=== PATIENT | female | born 1995 | race Caucasian/White ===

== ENCOUNTER 2019-08-29 04:25 | Emergency (ER) | payer OTHER, SELFPAY ==
[2019-08-29 04:27] VITALS: BP 130/83; PULSE 76; RESP 18; TEMP 37; O2SAT 100; BMI 23.0
--- NOTE | 2019-08-29 04:34 | ED.CHESTPAIN ---
HPI - Chest Pain General Chief Complaint: Chest Pain Stated Complaint: thinks she may have had heart attack, Time Seen by Provider: 08/29/19 04:27 Source: patient and family Mode of arrival: Ambulatory Limitations: no limitations History of Present Illness HPI narrative: 24-year-old female smoker with history of reflux presents with her significant other in the chief complaint of an episode of severe epigastric pain that started about 1 hour prior to arrival and lasted about 5 minutes. She states she has had significant alcohol over the past few weeks as well as caffeine intake. She denies associated symptoms such as dizziness, weakness or lightheadedness. She denies any radiation of her pain. She denies any cardiac history nor any family history of myocardial infarction less than 50 years old MD complaint: chest pain Onset (ago): hour(s) Duration: now resolved Onset: during rest Pain location: epigastric Severity: mild Quality: aching Pain radiation: none Relieving factors: nothing Exacerbating factors: nothing Treatments prior to arrival chest pain: none Related Data On Oral Contraceptives: No Review of Systems Constitutional Constitutional: Denies chills, Denies fatigue, Denies fever(s), Denies frequent falls, Denies lethargy and Denies weakness Eyes Eyes: Denies change in vision, Denies eye discharge, Denies irritation and Denies loss of vision ENT Ears, Nose, Mouth, and Throat: Denies change in voice, Denies dizziness, Denies neck pain, Denies sore throat and Denies throat swelling Cardiovascular Cardiovascular: Denies chest pain, Denies irregular heart rhythm, Denies lightheadedness, Denies palpitations, Denies dyspnea, Denies dyspnea on exertion and Denies orthopnea Respiratory Respiratory: Denies cough, Denies dyspnea, Denies dyspnea on exertion and Denies wheezing Gastrointestinal Gastrointestinal: Reports abdominal pain, Denies change in bowel habits, Reports heartburn, Denies diarrhea, Denies nausea and Denies vomiting Genitourinary Genitourinary: Denies hematuria, Denies flank pain, Denies urinary incontinence and Denies urinary urgency Musculoskeletal Musculoskeletal: Denies back pain, Denies muscle weakness, Denies neck pain, Denies numbness and Denies tingling Integumentary/Breasts Skin/Breast: Denies pruritus, Denies erythema, Denies rash and Denies wounds Neurologic Neurologic: Denies behavioral changes, Denies confusion, Denies dizziness, Denies frequent falls, Denies loss of vision, Denies numbness, Denies tingling and Denies weakness Psychiatric Psychiatric: Denies anxiety, Denies behavioral changes, Denies confusion, Denies depression, Denies homicidal ideation and Denies suicidal ideation Endocrine Endocrine: Denies fatigue, Denies flushing and Denies palpitations Hematologic/Lymphatic Hematologic/Lymphatic: Denies easy bruising Allergic/Immunologic Allergic/Immunologic: Denies urticaria, Denies throat swelling and Denies wheezing Patient History Social History Smoking Status: Current every day smoker Exam Narrative Exam Narrative: GENERAL: [24] year old patient appears stated age. Well-nourished, well-developed patient, in mild distress. HEAD: Atraumatic. Normocephalic. EYES: Pupils equal round and reactive. Extraocular motions intact. No scleral icterus. No injection or drainage. ENT: Nose without bleeding, purulent drainage. Throat without erythema, tonsillar hypertrophy or exudate. Airway patent. NECK: Trachea midline. Non tender CARDIOVASCULAR: Regular rate and rhythm without murmurs, gallops, or rubs. RESPIRATORY: Clear to auscultation. Breath sounds equal bilaterally. No wheezes, rales, or rhonchi. GASTROINTESTINAL: Abdomen soft, non-tender, nondistended. EXTREMITIES: No edema or joint tenderness. BACK: Nontender without deformity or crepitance. No flank tenderness. NEURO: AOx3. SKIN: No rash or erythema of visible areas Initial Vital Signs Initial Vital Signs: Vital Signs Temperature 98.6 F 08/29/19 04:27 Pulse Rate 76 08/29/19 04:27 Respiratory Rate 18 08/29/19 04:27 Blood Pressure 130/83 08/29/19 04:27 Pulse Oximetry 100 08/29/19 04:27 Course Orders Ordered: ED Orders 08/29/19 04:35 XR chest 1V Stat EKG-12 Lead Stat 08/29/19 04:45 B Type Natriuretic Peptide Stat Complete Blood Count AUTO DIFF Stat Comprehensive Metabolic Panel Stat D Dimer Stat Lipase Stat Troponin & CK Cardiac Panel Stat Sodium Chloride (Normal Saline 0.9%) 1,000 mls @ 150 mls/hr IV CONT CARMELA Discontinued Medications Aspirin (Aspirin Chew) 324 mg PO NOW ONE Stop: 08/29/19 04:35 Vital Signs Vital signs: Vital Signs - 8 hr 08/29/19 04:27 08/29/19 05:08 08/29/19 05:31 Temperature 98.6 F Pulse Rate 76 74 76 Respiratory Rate 18 18 20 Blood Pressure 130/83 Blood Pressure [Left Arm] 102/68 104/77 Pulse Oximetry 100 98 100 MDM - Chest Pain Lab Data Result diagrams: 08/29/19 04:45 08/29/19 04:45 Labs: Lab Results 08/29/19 08/29/19 08/29/19 Range/Units 04:45 04:45 04:45 WBC 10.0 (4.5-11.0) X10^3/uL RBC 4.09 (4.0-5.2) X10^6/uL Hgb 12.7 (12.0-16.0) g/dL Hct 37.5 (36-46) % MCV 91.6 (80-100) fL MCH 31.1 (26-34) PG MCHC 34.0 (30-36) % RDW 12.8 (11.6-14.8) % Plt Count 301 (150-400) X10^3/uL Neut % (Auto) 55.0 (50-75) % Lymph % (Auto) 35.3 (25-40) % Harris % (Auto) 8.5 (3-14) % Eos % (Auto) 0.7 L (2-4) % Baso % (Auto) 0.5 (0-2) % Neut # (Auto) 5500 (7685-9679) /uL Lymph # (Auto) 3500 (6812-2415) /uL Harris # (Auto) 800 (0-900) /uL Eos # (Auto) 100 (0-450) /uL Baso # (Auto) 0 (0-100) /uL D-Dimer 224 (<230) ng/mL Sodium (137-145) mmol/L Potassium (3.4-5.1) mmol/L Chloride (98-107) mmol/L Carbon Dioxide (22-32) mmol/L BUN (7-17) mg/dL Creatinine (0.52-1.04) mg/dL Estimated GFR (>60) mL/min BUN/Creatinine Ratio (6-22) Glucose (70-100) mg/dL Calcium (8.4-10.2) mg/dL Total Bilirubin (0.2-1.3) mg/dL AST (14-36) IU/L ALT (<35) IU/L Alkaline Phosphatase (38-126) U/L Total Creatine Kinase (30-135) U/L CK-MB (CK-2) CK-MB (CK-2) Rel Index Troponin I (0.01-0.034) ng/mL B-Natriuretic Peptide < 100 (<100) Total Protein (6.3-8.2) g/dL Albumin (3.5-5.0) g/dL Globulin (1.7-4.1) g/dL Albumin/Globulin Ratio (1.0-2.8) Lipase (23-300) U/L 08/29/19 Range/Units 04:45 WBC (4.5-11.0) X10^3/uL RBC (4.0-5.2) X10^6/uL Hgb (12.0-16.0) g/dL Hct (36-46) % MCV (80-100) fL MCH (26-34) PG MCHC (30-36) % RDW (11.6-14.8) % Plt Count (150-400) X10^3/uL Neut % (Auto) (50-75) % Lymph % (Auto) (25-40) % Harris % (Auto) (3-14) % Eos % (Auto) (2-4) % Baso % (Auto) (0-2) % Neut # (Auto) (3332-3826) /uL Lymph # (Auto) (5327-1706) /uL Harris # (Auto) (0-900) /uL Eos # (Auto) (0-450) /uL Baso # (Auto) (0-100) /uL D-Dimer (<230) ng/mL Sodium 138 (137-145) mmol/L Potassium 3.6 (3.4-5.1) mmol/L Chloride 103 (98-107) mmol/L Carbon Dioxide 25 (22-32) mmol/L BUN 17 (7-17) mg/dL Creatinine 0.80 (0.52-1.04) mg/dL Estimated GFR > 60.0 (>60) mL/min BUN/Creatinine Ratio 21.3 (6-22) Glucose 93 (70-100) mg/dL Calcium 9.5 (8.4-10.2) mg/dL Total Bilirubin 0.4 (0.2-1.3) mg/dL AST 19 (14-36) IU/L ALT 16 (<35) IU/L Alkaline Phosphatase 82 (38-126) U/L Total Creatine Kinase 55 (30-135) U/L CK-MB (CK-2) TNP CK-MB (CK-2) Rel Index TNP Troponin I < 0.012 (0.01-0.034) ng/mL B-Natriuretic Peptide (<100) Total Protein 6.5 (6.3-8.2) g/dL Albumin 4.2 (3.5-5.0) g/dL Globulin 2.3 (1.7-4.1) g/dL Albumin/Globulin Ratio 1.8 (1.0-2.8) Lipase 43 (23-300) U/L Imaging Data Chest x-ray: Attestation: I personally reviewed and interpreted this imaging study as follows: My impression: No acute process ECG Data Attestation: I personally reviewed and interpreted this ECG as follows: Interpretation: Normal sinus rhythm ring without signs of ectopy or ischemia. No ST segmental elevation or depression. Discharge Plan Departure Patient Disposition: Home Clinical Impression: Atypical chest pain Instructions: DI for Atypical Chest Pain Activity Restrictions/Additional Instructions: *You have been diagnosed with [atypical chest pain] *What to do: *Take medications as directed *Follow up with your primary care provider in 2-3 days, call for an appointment. Let them know you were seen in the Emergency Department and that we ask that you be seen in follow up *Return to ER if you should have any new, worsening or concerning symptoms
--- NOTE | 2019-08-29 04:35 | DI.RAD.S_ITS ---
PROCEDURE: XR CHEST 1V INDICATIONS: chest pain TECHNIQUE: One view of the chest was acquired. COMPARISON: None. FINDINGS: Surgical changes and devices: None. Lungs and pleura: Lungs are clear. No pleural effusions or pneumothorax. Mediastinum: Mediastinal contours appear normal. Heart size is normal. Bones and chest wall: No suspicious bony lesions. Overlying soft tissues appear unremarkable. IMPRESSION: Clear lungs. Dictated by: Jorgito Smith M.D. on 08/29/2019 at 7:22 Approved by: Jorgito Smith M.D. on 08/29/2019 at 7:23
[2019-08-29 05:06] LABS: Add Manual Diff / Slide Review NO; Basophils Absolute Auto 0 /uL (0-100); Basophils Percent Auto 0.5 % (0-2); Eosinophils Absolute Auto 100 /uL (0-450); Eosinophils Percent Auto 0.7 % (2-4); Hematocrit 37.5 % (36-46); Hemoglobin 12.7 g/dL (12.0-16.0); Lymphocytes Absolute Auto 3500 /uL (1100-4500); Lymphocytes Percent Auto 35.3 % (25-40); Mean Corpuscular Hemoglobin 31.1 PG (26-34); Mean Corpuscular Volume 91.6 fL (80-100); Monocytes Absolute Auto 800 /uL (0-900); Monocytes Percent Auto 8.5 % (3-14); Neutrophils Absolute Auto 5500 /uL (1500-7000); Platelet Count 301 X10^3/uL (150-400); Red Blood Cell Count 4.09 X10^6/uL (4.0-5.2); Red Cell Distribution Width 12.8 % (11.6-14.8)
[2019-08-29 05:08] VITALS: BP 102/68; PULSE 74; RESP 18; O2SAT 98
[2019-08-29 05:08] LABS: D Dimer 224 ng/mL (<230)
[2019-08-29 05:09] LABS: Alanine Aminotransferase 16 IU/L (<35); Albumin 4.2 g/dL (3.5-5.0); Albumin Globulin Ratio 1.8 (1.0-2.8); Alkaline Phosphatase 82 U/L (38-126); Aspartate Aminotransferase 19 IU/L (14-36); BUN Creatinine Ratio 21.3 (6-22); Bilirubin Total 0.4 mg/dL (0.2-1.3); Blood Urea Nitrogen 17 mg/dL (7-17); Calcium 9.5 mg/dL (8.4-10.2); Carbon Dioxide 25 mmol/L (22-32); Chloride 103 mmol/L (98-107); Creatine Kinase 55 U/L (30-135); Estimated Glomerular Filt Rate > 60.0 mL/min (>60); Globulin 2.3 g/dL (1.7-4.1); Glucose 93 mg/dL (70-100); HEMOLYSIS < 15 (0-50); Lipase 43 U/L (23-300); Potassium 3.6 mmol/L (3.4-5.1); Sodium 138 mmol/L (137-145); Total Protein 6.5 g/dL (6.3-8.2)
[2019-08-29 05:20] LABS: B Type Natriuretic Peptide < 100 (<100); Troponin I < 0.012 ng/mL (0.01-0.034)
[2019-08-29 05:31] VITALS: BP 104/77; PULSE 76; RESP 20; O2SAT 100
== END 2019-08-29 05:38 | disposition home or self-care (01) ==
PROVIDERS: Emergency Provider Emergency Medicine
DX: R07.89 Other chest pain (principal)
CPT/HCPCS: 36415; 71045; 80053; 82550; 83690; 83880; 84484; 85025; 85379; 93005; 99283; 99285

== ENCOUNTER 2019-12-31 12:13 | Emergency (ER) | payer OTHER, SELFPAY ==
[2019-12-31 12:29] VITALS: BP 113/58; PULSE 75; RESP 14; TEMP 36.3; O2SAT 100; BMI 23.9
--- NOTE | 2019-12-31 12:52 | DI.RAD.S_ITS ---
PROCEDURE: XR CHEST 2V INDICATIONS: bleach inhalation TECHNIQUE: 2 views of the chest were acquired. COMPARISON: None. FINDINGS: Surgical changes and devices: None. Lungs and pleura: Lungs are clear. No pleural effusions or pneumothorax. Mediastinum: Mediastinal contours are normal. Heart size is normal. Bones and chest wall: No suspicious bony abnormalities. Soft tissues appear unremarkable. IMPRESSION: No acute cardiopulmonary disease process. Dictated by: Yasmin Lazar MD, PhD on 12/31/2019 at 12:18 Approved by: Yasmin Lazar MD, PhD on 12/31/2019 at 12:19
--- NOTE | 2019-12-31 13:36 | ED.ALLEREA ---
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 Her come and has been cleaning working area every 2 hours with bleach sprays. She reports her mother has allergies to Clorox/bleach and she thinks she has the allergies to the Clorox/bleach. Patient reports currently she does not have any symptoms such as chest pain, breathing difficulty. She is requesting a note to take to her work that she has an allergy to bleach. 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 Related Data Allergies Allergy/AdvReac Type Severity Reaction Status Date / Time No Known Drug Allergies Allergy Verified 12/31/19 12:29 Review of Systems <NICOLAS Ennis - Last Filed: 12/31/19 14:26> Review of Systems Narrative: General: Denies fever, chills, fatigue, malaise, sweats. HEENT: Denies sinus pain, ear pain, sore throat, difficulty swallowing, dizziness. Respiratory: Resolved dyspnea and cough. Denies wheezing, hemoptysis, sputum. Cardiovascular: Denies chest pain, palpitations, orthopnea, edema. Gastrointestinal: Denies nausea, vomiting, abdominal pain, diarrhea, constipation, melena. : Denies dysuria, frequency, incontinence, hematuria, urinary retention. Musculoskeletal: Denies weakness, joint pain or bony pain. Skin: Denies rash, skin lesions, or other. Neurologic: Denies weakness, headache, numbness, change in speech, confusion, seizures, incoordination. Psychiatric: No concerning psychosocial issues. 12-point review of systems is negative except for those stated above. Patient History <NICOLAS Ennis - Last Filed: 12/31/19 14:26> Medical History (Updated 12/31/19 @ 13:47 by NICOLAS Ennis) No significant past medical history (Acute) Surgical History (Updated 12/31/19 @ 13:43 by NICOLAS Ennis) No pertinent past surgical history (Acute) Social History Smoking Status: Current every day smoker Smoking Status: Current every day smoker tobacco type: vaping alcohol intake frequency: 0-2 drinks per day Alcohol type: beer, wine and hard liquor Substance Use Type: does not use Exam <NICOLAS Ennis - Last Filed: 12/31/19 14:26> Narrative Exam Narrative: GEN: Alert, oriented x 3, well appearing and nourished, and in no acute distress. Head: Normal cephalic, atraumatic. No scalp or temporal tenderness, palpable mass or rash. EYES: Pupils are equal, round, and reactive to light and accommodation. Extraocular muscles are intact bilaterally. There is no subconjunctival hemorrhage, exudate and sclera non-icteric. ENT: Bilateral auditory canals and tympanic membranes clear. Hearing grossly intact. Nose without bleeding, purulent discharge or deviation. Facial sinuses nontender to palpate. Mucous membrane moist, no mucosal lesion. Throat without erythema, tonsillar hypertrophy or exudate. Uvula in midline, airway patent. Neck: Trachea in midline. No JVD, non-tender without lymphadenopathy. No masses or thyroid megaly. Supple, non-tender and no meningeal signs. CARDIAC: Normal regular rate and rhythm without murmurs, gallops, or rubs. No chest wall tenderness. No peripheral edema, cyanosis or pallor. Capillary refill is less than 2 seconds. RESPIRATORY: Lungs are clear to auscultate bilaterally. No cough, wheezes, rales, or rhonchi. No stridor, respiratory distress, increase work of breathing, or accessary muscle used. ABD: Abdomen soft, nontender and non-distended. No guarding or rebound tenderness to palpate. Bowel sounds are normal in all 4 quadrants. There is no palpable masses or organomegaly. EXT: Full painless ROM of all extremities with no loss of sensation, strength, effusion or edema. SKIN: Warm, dry, normal color for patient. No erythema, lesions or rash over visible areas. BACK: Nontender without deformity or crepitance. No flank tenderness. NEUROLOGICAL: Alert and oriented to place, time and person. Sensation and motor function intact bilaterally. No facial droops, dysphasia. PSYCHIATRIC: Good judgement and reason, without hallucinations, abnormal affect or abnormal behaviors during the examination. Initial Vital Signs Initial Vital Signs: Vital Signs Temperature 97.3 F L 12/31/19 12:29 Pulse Rate 75 12/31/19 12:29 Respiratory Rate 14 12/31/19 12:29 Blood Pressure 113/58 L 12/31/19 12:29 Pulse Oximetry 100 12/31/19 12:29 <Frank Lobo MD - Last Filed: 01/07/20 17:57> Initial Vital Signs Initial Vital Signs: Vital Signs Temperature 97.3 F L 12/31/19 12:29 Pulse Rate 75 12/31/19 12:29 Respiratory Rate 14 12/31/19 12:29 Blood Pressure 113/58 L 12/31/19 12:29 Pulse Oximetry 100 12/31/19 12:29 Scores <NICOLAS Ennis - Last Filed: 12/31/19 14:26> GCS Agnieszka coma scale eye opening: Spontaneous Agnieszka coma scale verbal response: Orientated Agnieszka coma scale motor response: Obey commands Agnieszka coma scale total score: 15 Course <NICOLAS Ennis - Last Filed: 12/31/19 14:26> Orders Ordered: ED Orders 12/31/19 12:52 Chest [XR chest 2V] Stat Vital Signs Vital signs: Vital Signs - 8 hr 12/31/19 12:29 12/31/19 14:10 Temperature 97.3 F L Pulse Rate 75 83 Respiratory Rate 14 16 Blood Pressure 113/58 L 94/58 L Pulse Oximetry 100 100 <Frank Lobo MD - Last Filed: 01/07/20 17:57> Orders Ordered: ED Orders 12/31/19 12:52 Chest [XR chest 2V] Stat Vital Signs Vital signs: Vital Signs - 8 hr 12/31/19 12:29 12/31/19 14:10 Temperature 97.3 F L Pulse Rate 75 83 Respiratory Rate 14 16 Blood Pressure 113/58 L 94/58 L Pulse Oximetry 100 100 MDM - Allergic Reaction <NICOLAS Ennis - Last Filed: 12/31/19 14:26> Differential Diagnosis Differential diagnosis: Likely allergic reaction and urticaria (Respiratory sensitivity to bleach products) Medical Records Attestation: I reviewed the patient's medical records. Imaging Data Chest x-ray: Radiologist's Impression: [address] [address] XRay Report Signed Patient: Jacinta Conroy [facility] [place]#: [id number] : 1995Acct:[id number] Age/Sex: 24 / FDate of Service: 12/31/19 Loc: ED Accession Number: [id number] Procedure: XR chest 2V Ordering Provider: Oscar Mercado PROCEDURE: XR CHEST 2V INDICATIONS: bleach inhalation TECHNIQUE: 2 views of the chest were acquired. COMPARISON: None. FINDINGS: Surgical changes and devices: None. Lungs and pleura: Lungs are clear. No pleural effusions or pneumothorax. Mediastinum: Mediastinal contours are normal. Heart size is normal. Bones and chest wall: No suspicious bony abnormalities. Soft tissues appear unremarkable. IMPRESSION: No acute cardiopulmonary disease process. 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 Patient denies dyspnea, swelling to her throat, rash on her hand currently. Her common has been cleaning every 2 hours with bleach product with the Garza Virus precuautions. Chest x-ray does not show any acute findings such as pneumonitis, pneumonia. Patient requesting allergy testing for bleach and informed that this could not be done in ED. Patient advised to avoid bleach products if this causes her dyspnea and short of breath in well ventilated area. Return precautions were discussed with the patient and patient verbalized understanding and in agreement with the treatment. Discharge Plan Departure Patient Disposition: Home Clinical Impression: Chemical sensitivity Discharge Date/Time: 12/31/19 14:15 Activity Restrictions/Additional Instructions: You have been diagnosed with [chemical sensitivity to bleach. Chest x-ray does not show acute findings today. Your lung sounds are clear to auscultate in all lobes. Your O2 sat isn't 100% in room air.]. What to do: *Take your medications as directed. No new medications to go home with but avoid bleach products if you experience short of breath, difficulty breathing, cough, rash or chest pain. *Follow up with your primary care provider in 2-3 days, call for an appointment. Let them know you were seen in the ED and that we asked you to be seen in follow up. *Return to ED if you have any new, worsening, or concerning symptoms, such as [chest pain, breathing difficulty, unable to tolerate fluids, or any acute concerns]. Referrals: [facility] [Outside] Stand Alone Forms: Work Release Note
[2019-12-31 14:10] VITALS: BP 94/58; PULSE 83; RESP 16; O2SAT 100
== END 2019-12-31 14:15 | disposition home or self-care (01) ==
PROVIDERS: Emergency Provider Nurse Practitioner Family
DX: T54.91XA Toxic effect of unspecified corrosive substance, accidental (unintentional), initial encounter (principal)
CPT/HCPCS: 71046; 99281; 99283

== ENCOUNTER → 2020-12-26 08:35 | Outpatient (CLI) | payer OTHER, SELFPAY ==
[2020-12-26 09:39] LABS: Add Manual Diff / Slide Review NO; Basophils Absolute Auto 0 /uL (0-100); Basophils Percent Auto 0.3 % (0-2); Eosinophils Absolute Auto 0 /uL (0-450); Eosinophils Percent Auto 0.5 % (2-4); Hematocrit 38.4 % (36-46); Lymphocytes Absolute Auto 1700 /uL (1100-4500); Lymphocytes Percent Auto 19.2 % (25-40); Mean Corpuscular HGB Conc 33.9 % (30-36); Mean Corpuscular Hemoglobin 31.1 PG (26-34); Mean Corpuscular Volume 91.8 fL (80-100); Monocytes Absolute Auto 500 /uL (0-900); Monocytes Percent Auto 5.5 % (3-14); Neutrophils Absolute Auto 6700 /uL (1500-7000); Neutrophils Percent Auto 74.5 % (50-75); Platelet Count 280 X10^3/uL (150-400); Red Blood Cell Count 4.18 X10^6/uL (4.0-5.2); Red Cell Distribution Width 12.4 % (11.6-14.8); White Blood Cell Count 8.9 X10^3/uL (4.5-11.0)
[2020-12-26 09:56] LABS: Appearance Urine UA CLEAR; Bilirubin Urine UA NEGATIVE (NEGATIVE); Color Urine UA YELLOW; Glucose Urine UA NEGATIVE (Negative); Ketones Urine UA NEGATIVE (NEGATIVE); Leukocyte Esterase Urine UA NEGATIVE (NEGATIVE); Nitrite Urine UA NEGATIVE (Negative); Occult Blood Urine UA NEGATIVE (Negative); Protein Urine UA NEGATIVE (Negative); Specific Gravity Urine UA <=1.005 (1.000-1.035); Urobilinogen Urine UA 0.2 E.U./dL (0.2)
[2020-12-26 10:07] LABS: pH Urine UA 5.5 (4.5-8.0)
[2020-12-26 16:21] LABS: Hepatitis B Surface Antigen NEGATIVE s/c (NEGATIVE); Rubella Antibody IgG 6.4 IU/mL (>15)
[2020-12-26 16:38] LABS: Hep C Virus Ab w/Reflex Quant NEGATIVE s/c (NEGATIVE)
[2020-12-27 07:36] LABS: RPR Screen Non Reactive (Non Reactive)
[2020-12-27 10:36] LABS: Varicella IgG Antibody 1421 index (Immune >165)
== END ==
PROVIDERS: Referring Provider Specialist; Visit Provider Specialist
DX: Z34.01 Encounter for supervision of normal first pregnancy, first trimester (principal)
CPT/HCPCS: 36415; 80055; 81003; 86787; 86803; 86850; 86900; 86901; 87077; 87086

== ENCOUNTER → 2021-01-23 08:04 | Outpatient (CLI) | payer OTHER, SELFPAY ==
[2021-01-24 22:02] LABS: Chlamydia trachomatis NAA Negative (Negative); Neisseria gonorrhoeae NAA Negative (Negative)
== END ==
PROVIDERS: Visit Provider Specialist
DX: Z11.3 Encounter for screening for infections with a predominantly sexual mode of transmission (principal)
CPT/HCPCS: 87491; 87591

== ENCOUNTER → 2021-03-26 09:06 | Outpatient (CLI) | payer OTHER, SELFPAY ==
--- NOTE | 2021-03-26 09:07 | DI.US.S_ITS ---
PROCEDURE: US OB >= 14 WEEKS FETUS INDICATIONS: ANATOMY OUTSIDE/PRIOR DATING DATA: Last menstrual period (LMP): 10/27/2020 LMP-based estimated date of delivery (CLAUDETTE): 08/03/2021 First dating scan (date and location): 12/26/2020. [place] Estimated date of delivery (CLAUDETTE) from first dating scan: 07/30/2021 . TECHNIQUE: Real-time scanning was performed of the fetus, with image documentation and biometric measurements. COMPARISON: None. FINDINGS: General: A single living intrauterine gestation is present. Presentation: Vertex. Placenta: Placental position is posterior , without previa. Amniotic fluid index: 17.0 cm, normal range is 5-24 cm. heart rate: 157 beats per minute. Maternal cervical canal: 3.0 cm long. Normal lower limit is 2.5 cm. Maternal anatomy. A 4.5 x 1.9 x 2.2 centimeter right ovarian simple cyst is seen. biometrics: Biparietal diameter: 5.3 centimeters: 22 weeks 0 days Head circumference: 19.1 centimeters: 21 weeks 3 days Abdominal circumference: 16.2 centimeters: 21 weeks 2 days Femur length: 3.9 centimeters: 21 weeks 2 days Estimated gestational age from initial scan: 22 weeks 0 days. Composite gestational age from present scan: 21 weeks 5 days Estimated weight and percentile: 444 grams. 30th percentile Measurement variability for biometric dating: +/- 7 days from 14 weeks to 15 weeks 6 days gestation, +/- 10 days from 16 weeks to 21 weeks 6 days gestation, +/- 2 weeks from 22 weeks to 27 weeks 6 days gestation, +/- 3 weeks for 28 weeks gestation or later. weight reference: 4500 g or EFW >90/95% is considered macrosomia or large for gestational age. EFW <10% is small for gestational age. EFW 5% or less is considered intra-uterine growth restriction. Anatomic survey: Neuro: Ventricles are non-dilated at less than 10 mm. Cisterna magna is normal at 3-11 mm. Cerebellum is normal in size and morphology. Nuchal skin fold: Normal at less than 6 mm between 14-21 weeks gestational age. Face: Nose and lips, facial profile are normal. Spine: No evidence for spina bifida. Heart: 4-chambered heart is present, with normal ventricular outflow tracts. Diaphragm: Diaphragm is intact. Stomach: Left-sided stomach is present but is prominent Kidneys: No hydronephrosis. Normal is less than 5 mm in 2nd trimester, less than 7 mm in 3rd trimester. Cord: 3-vessel cord has orthotopic insertion. Bladder: Normal in size. Extremities: All 4 extremities identified. IMPRESSION: 1. Single live intrauterine with a composite ultrasound gestational age of 21 weeks 5 days on present scan. 2. The stomach is prominent and fluid filled, all other anatomy is normal. 3. Simple right ovarian cyst. Dictated by: Leo White M.D. on 03/26/2021 at 12:39 Approved by: Leo White M.D. on 03/26/2021 at 12:45
[2021-03-26 12:40] LABS: Hematocrit 34.2 % (36-46); Hemoglobin 11.5 g/dL (12.0-16.0)
[2021-03-26 13:01] LABS: GTT (PREG) 1 Hour PP 50gm Dose 115 mg/dL (76-139)
== END ==
PROVIDERS: Referring Provider Specialist; Visit Provider Specialist
DX: O34.82 Maternal care for other abnormalities of pelvic organs, second trimester (principal); N83.291 Other ovarian cyst, right side; Z3A.21 21 weeks gestation of pregnancy
CPT/HCPCS: 36415; 76811; 82950; 85014; 85018

== ENCOUNTER → 2021-04-27 07:57 | Outpatient (CLI) | payer OTHER, SELFPAY ==
[2021-04-27 09:41] LABS: Hematocrit 33.5 % (36-46); Hemoglobin 11.5 g/dL (12.0-16.0)
[2021-04-27 09:51] LABS: GTT (PREG) 1 Hour PP 50gm Dose 169 mg/dL (76-139)
== END ==
PROVIDERS: Referring Provider Specialist; Visit Provider Specialist
DX: O99.810 Abnormal glucose complicating pregnancy (principal); O99.019 Anemia complicating pregnancy, unspecified trimester
CPT/HCPCS: 36415; 82950; 85014; 85018

== ENCOUNTER → 2021-05-02 06:39 | Outpatient (CLI) | payer OTHER, SELFPAY ==
[2021-05-02 09:01] LABS: Glucose 1 Hour Gest 154 mg/dL (76-180)
[2021-05-02 09:01] LABS: Glucose Fasting Gestational 78 mg/dL (76-95)
[2021-05-02 10:21] LABS: Glucose 2 Hour Gest 129 mg/dL (76-155)
[2021-05-02 10:21] LABS: Glucose Tol Interp,Gestational INTERPRETATION
[2021-05-02 11:21] LABS: Glucose 3 Hour Gest 113 mg/dL (76-140)
== END ==
PROVIDERS: Obstetrics & Gynecology; Referring Provider Specialist; Visit Provider Specialist
DX: Z34.02 Encounter for supervision of normal first pregnancy, second trimester (principal); Z3A.26 26 weeks gestation of pregnancy
CPT/HCPCS: 36415; 82951; 82952

== ENCOUNTER 2021-05-16 17:59 | Outpatient (CLI) | payer OTHER, SELFPAY ==
--- NOTE | 2021-05-16 18:43 | P.TNLD_ITS ---
Visit Information Visit Information Date of evaluation: 05/16/21 Primary OB Provider: Blanca Morales Reason for Evaluation: Yes pre-term labor Comments/Additional reasons for admission: 25-year-old 1 para 0 at 28 weeks 5 days comes in complaining of lower abdominal cramping and decreased movement [facility] Medical History (Updated 03/27/21 @ 09:37 by Manish Castillo MD) Anemia affecting GERD (gastroesophageal reflux disease) (~2015) No significant past medical history Surgical History (Updated 12/21/20 @ 15:14 by Glenis Lua RN) No pertinent past surgical history [place] teeth extracted Family History (Updated 12/21/20 @ 15:28 by Glenis Lua, NIKOLAI) Mother Chain smoker Father Family estrangement Grandmother Lung cancer Smoker Grandfather Smoker COPD (chronic obstructive pulmonary disease) Grandmother Diabetes mellitus Grandfather Diabetes mellitus Sister infant Asthma Social History marital status: unmarried,living together (Lives w/ FOB. ) number of children: 2 household members: significant other and children (Boyfriend's children, age 6 & 9. ) lives independently: Yes caregiver/support person: No housing: house pets and animals: Yes (1 Cat; aware. ) education level: college (Working on Bachelor's in [employer].) occupational status: employed (Works on [employer], now has desk job r/t . ) current occupational exposures/hazards: No special lilyl needs: No seatbelt use: always working smoke detector in home: Yes carbon monox detector in home: Yes firearms in home: Yes firearms unloaded and locked: Yes do you feel safe at home: Yes Smoking Status: Former smoker (Cigarettes & Vaping x 5 yrs; quit 11/2020.) Tobacco: How many years used: 5 quit status: has quit before second hand exposure: No alcohol intake: former (Pre-: rarely, but situational. ) substance use type: does not use during the past year weight has: remained stable well-balanced diet: daily or most days daily servings fruits/ve-4 caffeine: No (Quit w . ) Type(s) of exercise: weight lifting (Pre-: weighted lifts / squats, gym daily. ) and normal ROM and activity frequency: daily Review of Systems Review of Systems Narrative: Patient states that she had cramping in her lower abdomen at work going up and downstairs and when she was driving. She states she has been pushing fluids and she did end up going home and her cramping has decreased. She is concerned because she has been noticing decreased movement. She denies any vaginal bleeding. The cramping appears to be suprapubic. She does states she is urinating more frequently. Exam Vital Signs (past 8 hours): blood pressure 115/72, temperature 36.1? Narrative Exam Narrative: Patient's abdomen is soft, nontender. Objective Labs Labs: UA negative Evaluation Evaluation Baseline heart rate: 150 Variability: Moderate (11-25) monitor accelerations: Absent Monitor Decelerations: Absent Contraction Frequency (minutes): 0 Status: Category l Diagnosis, Plan/Disposition Plan/Disposition Plan: Patient feeling good movement now. No contractions on monitor so patient reassured. Patient is to call if she notices increasing rather than decreasing pain. Vaginal bleeding. Any further concerns with baby movement. Patient is to increase fluids and rest as much as she can. Keep her follow-up appointment in 2 weeks OB Disposition: home
[2021-05-16 19:14] LABS: Appearance Urine UA CLEAR; Bilirubin Urine UA NEGATIVE (NEGATIVE); Color Urine UA YELLOW; Glucose Urine UA TRACE g/dL (Negative); Ketones Urine UA NEGATIVE (NEGATIVE); Leukocyte Esterase Urine UA NEGATIVE (NEGATIVE); Nitrite Urine UA NEGATIVE (Negative); Occult Blood Urine UA NEGATIVE (Negative); Protein Urine UA NEGATIVE (Negative); Urobilinogen Urine UA 0.2 E.U./dL (0.2)
== END 2021-05-16 19:21 | disposition home or self-care (01) ==
LOC: LABOR 18:02 → OB 05-17 08:30
PROVIDERS: Referring Provider Specialist; Visit Provider Specialist
DX: O36.8130 Decreased fetal movements, third trimester, not applicable or unspecified (principal); O26.893 Other specified pregnancy related conditions, third trimester; R10.30 Lower abdominal pain, unspecified; Z3A.28 28 weeks gestation of pregnancy
CPT/HCPCS: 59025; 81003; G0378; G0379

== ENCOUNTER 2021-07-12 19:56 | Outpatient (CLI) | payer OTHER, SELFPAY | END 2021-07-12 22:06 | disposition home or self-care (01) | LOC: OB 07-18 07:14 | PROVIDERS: Referring Provider Specialist; Visit Provider Specialist | DX: Z03.71 Encounter for suspected problem with amniotic cavity and membrane ruled out (principal); O47.03 False labor before 37 completed weeks of gestation, third trimester; Z3A.36 36 weeks gestation of pregnancy | CPT/HCPCS: 59025; 84112; G0378; G0379 ==

== ENCOUNTER → 2021-07-13 13:43 | Outpatient (CLI) | payer OTHER, SELFPAY ==
[2021-07-14 14:54] LABS: Strep Grp B PCR NEG for Grp B Strep
== END ==
PROVIDERS: Visit Provider Obstetrics & Gynecology
DX: Z34.03 Encounter for supervision of normal first pregnancy, third trimester (principal); Z3A.37 37 weeks gestation of pregnancy
CPT/HCPCS: 87653

== ENCOUNTER 2021-07-29 18:43 | Inpatient (IN) | payer OTHER, SELFPAY ==
--- NOTE | 2021-07-29 20:09 | PM.OBHP.1 ---
OB HPI Date/Time Date of admission: 07/29/21 Date Patient Seen: 07/29/21 Time Patient Seen: 20:09 History of Present Condition Chief complaint: LABOR CHECK : 1 Para: 0 Estimated Date of Delivery: 08/03/21 Estimated Gestational Age (weeks): 39.2 Narrative: Jacinta Canales is a 25 year old female @ [id number]. Presents for evaluation of labor. Contractions started this morning and have slowly progressed in frequency and intensity. +FM. No vaginal bleeding or LOF. care w/ significant for mild anemia and a prominent stomach evaluated by MFM and determined to be a likely variant of normal, though pediatric evaluation is recommended after . Planning epidural. History of Present care: good care, initiated at week # (8), number of visits (10) and pounds weight gain (46) Dating criteria: LMP confirmed by 1st trimester US Ultrasounds: normal mid trimester US Obstetrical complications: none Medical complications: none Preadmission Labs Blood type: O (+) positive -: Antibody screen: negative -: Chlamydia screen: not detected and Gonorrhea screen: not detected -: Rubella: not immune and Varicella: immune HCAB: negative 3 hr GTT: 1 hr (154), 2 hr (129) and 3 hr (113) Fasting blood glucose: 78 Evaluation Evaluation Baseline heart rate: 135 Variability: Moderate (11-25) monitor accelerations: Present Monitor Decelerations: Absent Contraction Frequency (minutes): 5 Uterine Contraction Intensity: Strong/Firm Status: Category l Cervical dilation (cm): 4 Cervical effacement (%): 90 station: -2 [facility] Medical History Anemia affecting GERD (gastroesophageal reflux disease) (~2016) No significant past medical history Surgical History No pertinent past surgical history [place] teeth extracted Family History Mother Chain smoker Father Family estrangement Grandmother Lung cancer Smoker Grandfather Smoker COPD (chronic obstructive pulmonary disease) Grandmother Diabetes mellitus Grandfather Diabetes mellitus Sister Asthma Social History marital status: unmarried,living together (Lives w/ FOB. ) number of children: 2 household members: significant other and children (Boyfriend's children, age 6 & 9. ) lives independently: Yes caregiver/support person: No housing: house pets and animals: Yes (1 Cat; aware. ) education level: college (Working on Bachelor's in [employer].) occupational status: employed (Works on [employer], now has desk job r/t . ) current occupational exposures/hazards: No special lilly needs: No seatbelt use: always working smoke detector in home: Yes carbon monox detector in home: Yes firearms in home: Yes firearms unloaded and locked: Yes do you feel safe at home: Yes Smoking Status: Former smoker (Cigarettes & Vaping x 5 yrs; quit 11/2020.) Tobacco: How many years used: 5 quit status: has quit before second hand exposure: No alcohol intake: former (Pre-: rarely, but situational. ) substance use type: does not use during the past year weight has: remained stable well-balanced diet: daily or most days daily servings fruits/ve-4 caffeine: No (Quit w . ) Type(s) of exercise: weight lifting (Pre-: weighted lifts / squats, gym daily. ) and normal ROM and activity frequency: daily Meds Home Medications and Allergies Home Medications Medication Instructions Recorded Confirmed Type prenat.vits,chani,kyu-knke-vegbm 1 tab PO DAILY 12/26/20 07/26/21 History ascorbic acid (vitamin C) 500 mg 500 mg PO DAILY #90 cap 03/27/21 07/26/21 Rx capsule ferrous sulfate 325 mg (65 mg 325 mg PO DAILY #90 tab 03/27/21 07/26/21 Rx iron) tablet (Feosol) pantoprazole 40 mg tablet,delayed 40 mg PO DAILY 05/31/21 07/26/21 History release (Protonix) Allergies Allergy/AdvReac Type Severity Reaction Status Date / Time No Known Drug Allergies Allergy Verified 05/31/21 11:59 Review of Systems Review of Systems ROS: Yes All systems reviewed with the patient and are negative except as otherwise documented Exam Vital Signs (past 8 hours): BP 131/87mmHg, HR 86bpm, RR 18/min, T 98.0F Temporal Resp Auscultation: clear to auscultation bilaterally Cardio Rate: regular rate Rhythm: regular rhythm Heart Sounds: S1 normal and S2 normal Presentation: vertex Assessment and Plan Assessment and Plan Assessment and Plan narrative: A: Term nullipara Active labor No indication for GBS prophylaxis Cat I FHR P: Admit, routine orders with epidural BILLY. Discussed management with OB Back-up/ who recommended CNM care which pt consents to. Will notify Peds after delivery to evaluate stomach. Reassess after 4 hours or sooner, PRN.
[2021-07-29 20:51] LABS: Add Manual Diff / Slide Review NO; Basophils Absolute Auto 0 /uL (0-100); Basophils Percent Auto 0.3 % (0-2); Eosinophils Absolute Auto 0 /uL (0-450); Eosinophils Percent Auto 0.1 % (2-4); Hematocrit 37.3 % (36-46); Hemoglobin 12.1 g/dL (12.0-16.0); Lymphocytes Absolute Auto 2000 /uL (1100-4500); Lymphocytes Percent Auto 13.9 % (25-40); Mean Corpuscular HGB Conc 32.3 % (30-36); Mean Corpuscular Hemoglobin 29.1 PG (26-34); Mean Corpuscular Volume 90.1 fL (80-100); Monocytes Absolute Auto 800 /uL (0-900); Monocytes Percent Auto 5.6 % (3-14); Neutrophils Absolute Auto 11500 /uL (1500-7000); Neutrophils Percent Auto 80.1 % (50-75); Platelet Count 251 X10^3/uL (150-400); Red Blood Cell Count 4.14 X10^6/uL (4.0-5.2); Red Cell Distribution Width 16.4 % (11.6-14.8); White Blood Cell Count 14.3 X10^3/uL (4.5-11.0)
[2021-07-29 21:08] LABS: COVID19 -Nasal RAPID Negative (Negative)
[2021-07-29] MEDS: FENT 2MCG/ML BUPIV 0.125% EPI 200 MCG/100 ML PLAST..BAG 10 MCG EPIDURAL (21:14)
[2021-07-29 23:41] VITALS: BP 131/87
[2021-07-30] MEDS: FENT 2MCG/ML BUPIV 0.125% EPI 200 MCG/100 ML PLAST..BAG 10 MCG EPIDURAL (01:56)
[2021-07-30] MEDS: LACTATED RINGERS 1,000 ML 100 ML IV ×2 (02:12→08:58)
--- NOTE | 2021-07-30 05:00 | PM.OBPNLAB ---
Date/Time Date Patient Seen: 07/30/21 Time Patient Seen: 00:00 Pain Control Pain control: epidural Comments: VS: BP 116/68mmHg, HR 69bpm, T 36.4C Temporal Pelvic Exam Dilation (cm): 7 Effacement (%): 90 station: -1 Contractions Contractions on admission: regular Monitor mode: External Contraction frequency (min): 3 Contraction duration (min): 1 Contraction pattern: Regular Status status: Category l Heart Rate Baseline: 130 Monitor Accelerations: Present Monitor Decelerations: Early Monitor Variability: Moderate Assessment and Plan Assessment: active labor Plan: continuous present management Comments: Encourage rest and position changes w/ peanut ball. Reassess in 4 hours or sooner, PRN.
--- NOTE | 2021-07-30 05:11 | PM.OBPNLAB ---
Date/Time Date Patient Seen: 07/30/21 Time Patient Seen: 05:00 Pain Control Pain control: epidural (epidural was replaced at 0147, now working well) Comments: VS: BP128/76mmHg, HR 78bpm, T 36.3C Temporal Pelvic Exam Dilation (cm): 9 Effacement (%): 90 station: -1 Amniotic membrane status: Leaking (clear) Comments: LOP position Contractions Monitor mode: External Contraction frequency (min): 3 Contraction duration (min): 1 Contraction pattern: Regular Contraction intensity: Strong/Firm Status status: Category l Heart Rate Baseline: 130 Monitor Accelerations: Present Monitor Decelerations: Early Monitor Variability: Moderate Assessment and Plan Assessment: active labor Plan: continuous present management and begin patient augmentation Comments: Recommend left exaggerated [place] and pitocin augmentation. Reassess in 2-4 hours or sooner, PRN.
[2021-07-30] MEDS: OXYTOCIN PREMIX 30 UNIT/500 ML PLAST..BAG IV (06:47)
[2021-07-30] MEDS: ACETAMINOPHEN 325 MG TABLET 975 MG PO (07:02)
--- NOTE | 2021-07-30 11:41 | PM.OBPRVD ---
Events: Labor Augmentation Labor & Delivery Delivery date: 07/30/21 Intrapartal Events: Anesthetic Complications Cervical ripening method: none Induction method: none Delivery augmentation: rupture of membranes and pitocin Delivery monitor: external FHT and external uterine Route of delivery: Episiotomy description: None L&D Laceration Description: Perineal - 1st Degree and Labial Delivery repair: chromic Estimated blood loss (mL): 100 Anesthesia Type: Epidural Narrative: Labor: This 25 year old, G 1P0, at 39.2 weeks by LMP and first trimester US presented 07/29/21 at 2200 in early labor. Pt labored throughout the night. Epidural placed upon request and replaced x3 due to poor pain relief. Labor course prolonged with slow progress but reassuring FHR. Pt feeling increased pain at 1030, SVE 9.5/100/0. AROM with clear fluid at 1105, anterior lip of cervix reduced with maternal pushing. : Normal of a viable female on 07/30/21 at 1114. Nuchal x1, reduced. Shoulders delivered easily with maternal pushing. Mammoth was placed on maternal abdomen, skin to skin, stimulated, and dried. Apgars were 8/9. Pitocin administered via IV for hemostasis. The umbilical cord was allowed to stop pulsating at which time it was double clamped and cut by FOB. 3 VC. Cord blood obtained. Gentle cord traction applied for delivery of the placenta. Placenta delivered spontaneously and intact. EBL 100cc. 1st degree labial and perineal lacerations noted, repaired with 3-0 Chromic. Hemostasis achieved. Fundus firm and bleeding minimal. Baby remained skin to skin with mother for bonding and . Epidural analgesia. Breasfeeding. Mom and infant stable to recovery. Baby 1: gender: Female Presentation: vertex Position: Right Occiput Anterior Placenta delivery description: Spontaneous Cord Vessel Description: 3 Vessels, Nuchal Cord, Loose, Reduced and Clamped/Cut score (1 min): 8 score (5 min): 9 Plan for aftercare: Routine care
[2021-07-30 13:22] VITALS: TEMP 36.5
[2021-07-30] MEDS: IBUPROFEN 600 MG TABLET PO ×2 (13:22→18:56)
[2021-07-30] MEDS: DERMOPLAST SPRAY 20% 60 ML 1 SPRAY TOP (13:23)
[2021-07-30] MEDS: ACETAMINOPHEN 325 MG TABLET 650 MG PO (18:55)
[2021-07-30 18:56] VITALS: TEMP 36.7
[2021-07-31] MEDS: IBUPROFEN 600 MG TABLET PO ×2 (02:24→08:45)
[2021-07-31] MEDS: ACETAMINOPHEN 325 MG TABLET 650 MG PO ×2 (02:25→08:44)
[2021-07-31 08:06] LABS: Hematocrit 33.3 % (36-46); Hemoglobin 10.8 g/dL (12.0-16.0)
--- NOTE | 2021-07-31 08:08 | P.DS_ITS ---
Discharge Providers Provider Date of admission: 07/29/21 18:43 Discharge Date: 07/31/21 Consults: 07/31/21 11:39 Consult to [employer] Routine Comment: Discharge provider: Blanca Morales MD Summary Hospital Course Date Patient Seen: 07/31/21 Time Patient Seen: 08:08 Diagnoses: Spontaneous vaginal delivery with repair of first-degree tear Hospital Course: Patient arrived on Labor and delivery in active labor. She had multiple attempts at epidural which failed. She had a spontaneous vaginal delivery of a viable female with repair of a first-degree tear Peripartum Data Infant Delivery Method: Natural Vaginal Laceration Description: Perineal - 1st Degree complications: none 1: Gender: Female Disposition of : home Discharge Diagnosis (1) Vaginal delivery: Status: Acute Status at Discharge Cognitive/behavioral status at discharge: oriented Functional status at discharge: independent ambulation Overall status at discharge: patient is progressing back to baseline Time Spent with Patient Time attestation: Total time spent providing and/or coordinating discharge services: Time spent: Less than 30 minutes Objective Labs Result Diagrams: 07/31/21 07:40 Exam Vital Signs (past 8 hours): Blood pressure 112/72, pulse of 89, temperature 97.4? Narrative Exam Narrative: Abdomen is soft, nontender. Uterus is firm, at U, nontender. Mild lochia. Extremities without edema and nontender. Patient's blood type is O-positive. She is rubella nonimmune so will receive the rubella vaccine prior to discharge. She received Tdap in the 3rd trimester. Discharge Plan Discharge Plan Patient Disposition: Home Discharge orders & Medications Prescriptions: Continued ferrous sulfate [Feosol] 325 mg (65 mg iron) tablet 325 mg PO DAILY Qty: 90 RF: 1 pantoprazole [Protonix] 40 mg tablet,delayed release (DR/EC) 40 mg PO DAILY RF: 0 prenat.vits,chani,sje-zexy-jxiyp Tablet 1 tab PO DAILY RF: 0 Follow up/Referrals: Blanca Morales MD [Physician] - 1 Month Diet/Activity/Treatments Diet: Regular Activity: Nothing in vagina for 4 weeks Skin/Wound/Dressing Care Report to your healthcare provider any signs of infection, such as:: chills, fever and increased pain
[2021-07-31 08:44] VITALS: TEMP 36.3
[2021-07-31] MEDS: PRENATAL VIT,CALC/IRON/FOLIC 1 TABLET 1 TAB PO (08:44)
[2021-07-31 08:45] VITALS: TEMP 36.3
[2021-07-31 10:35] VITALS: BP 112/72; PULSE 89; RESP 16; TEMP 36.3
[2021-07-31] MEDS: MEASLES,MUMPS,RUBELLA VACC/PF 0.5 ML VIAL SUBCUT (12:34)
== END 2021-07-31 12:45 | disposition home or self-care (01) | DRG 806 ==
PROVIDERS: Obstetrics & Gynecology; Admitting Provider Nurse Practitioner Obstetrics & Gynecology; Referring Provider Nurse Practitioner Obstetrics & Gynecology; Visit Provider Nurse Practitioner Obstetrics & Gynecology
DX: O99.02 Anemia complicating childbirth (principal); O63.9 Long labor, unspecified; Z37.0 Single live birth; D64.9 Anemia, unspecified; Z3A.39 39 weeks gestation of pregnancy; O70.0 First degree perineal laceration during delivery; Z20.822 Contact with and (suspected) exposure to COVID-19; O69.81X0 Labor and delivery complicated by cord around neck, without compression, not applicable or unspecified
CPT/HCPCS: 01967; 36415; 59050; 59400; 59409; 85014; 85018; 85025; 86850; 86900; 86901; 87635; C9803; G0379; J2590

== ENCOUNTER 2022-05-07 14:33 | Emergency (ER) | payer OTHER, SELFPAY ==
[2022-05-07 14:37] VITALS: BP 105/67; PULSE 86; RESP 18; TEMP 36.7; O2SAT 98
--- NOTE | 2022-05-07 15:59 | ED_ITS ---
HPI - Back Pain/Injury <Nate Carrillo PA-C - Last Filed: 05/13/22 12:48> General Chief Complaint: Back Pain/Injury Stated Complaint: TINGLING OF HANDS Time Seen by Provider: 05/07/22 14:40 Source: patient History of Present Illness HPI Narrative: 26-year-old female with no reported past medical history presents to the ED with 1 day of lower back pain. Patient states that she had sudden onset midline lower back pain earlier this morning, following which she took some Excedrin and ibuprofen with moderate relief. Patient states that her pain is alleviated by bending forward, twisting. Patient does not recall any trauma. Patient does carry her child around who is 18 lb. Patient has no history of lower back problems. Patient denies numbness, tingling, weakness in her legs. Endorses some tingling in bilateral fingers. Pain does not radiate. Patient denies saddle paresthesias, urinary hesitancy, urinary frequency, urinary urgency, bowel incontinence. Patient denies IV drug use. Patient denies fever, chills, nausea, vomiting, chest pain, shortness of breath. Related Data Home Medications Medication Instructions Recorded Confirmed prenat.vits,chani,[id number] 1 tab PO DAILY 12/26/20 08/29/21 pantoprazole 40 mg tablet,delayed 40 mg PO DAILY 05/31/21 08/29/21 release (Protonix) Previous Rx's Medication Instructions Recorded ferrous sulfate 325 mg (65 mg 325 mg PO DAILY #90 tabs 03/27/21 iron) tablet (Feosol) cyclobenzaprine 10 mg tablet 10 mg PO TID PRN muscle spasm #20 05/07/22 tabs Allergies Allergy/AdvReac Type Severity Reaction Status Date / Time No Known Drug Allergies Allergy Verified 07/30/21 02:36 Review of Systems <Nate Carrillo PA-C - Last Filed: 05/13/22 12:48> Review of Systems ROS Unobtainable: All systems reviewed & are unremarkable except as noted in HPI and below Constitutional Constitutional: Denies chills, Denies fatigue, Denies fever(s), Denies frequent falls, Denies lethargy and Denies weakness Eyes Eyes: Denies change in vision, Denies eye discharge, Denies irritation and Denies loss of vision ENT Ears, Nose, Mouth, and Throat: Denies change in voice, Denies dizziness, Denies neck pain, Denies sore throat and Denies throat swelling Cardiovascular Cardiovascular: Denies chest pain, Denies irregular heart rhythm, Denies lightheadedness, Denies palpitations, Denies dyspnea, Denies dyspnea on exertion and Denies orthopnea Respiratory Respiratory: Denies cough, Denies dyspnea, Denies dyspnea on exertion and Denies wheezing Gastrointestinal Gastrointestinal: Denies abdominal pain, Denies change in bowel habits, Denies diarrhea, Denies nausea and Denies vomiting Genitourinary Genitourinary: Denies hematuria, Denies flank pain, Denies urinary incontinence and Denies urinary urgency Musculoskeletal Musculoskeletal: Denies back pain, Denies muscle weakness, Denies neck pain, Denies numbness and Denies tingling Integumentary/Breasts Skin/Breast: Denies pruritus, Denies erythema, Denies rash and Denies wounds Neurologic Neurologic: Denies behavioral changes, Denies confusion, Denies dizziness, Denies frequent falls, Denies loss of vision, Denies numbness, Denies tingling and Denies weakness Psychiatric Psychiatric: Denies anxiety, Denies behavioral changes, Denies confusion, Denies depression, Denies homicidal ideation and Denies suicidal ideation Endocrine Endocrine: Denies fatigue, Denies flushing and Denies palpitations Hematologic/Lymphatic Hematologic/Lymphatic: Denies easy bruising Allergic/Immunologic Allergic/Immunologic: Denies urticaria, Denies throat swelling and Denies wheezing Patient History <Nate Carrillo PA-C - Last Filed: 05/13/22 12:48> Medical History Anemia affecting GERD (gastroesophageal reflux disease) (~2016) No significant past medical history Surgical History No pertinent past surgical history [place] teeth extracted Family History Mother Chain smoker Father Family estrangement Grandmother Lung cancer Smoker Grandfather Smoker COPD (chronic obstructive pulmonary disease) Grandmother Diabetes mellitus Grandfather Diabetes mellitus Sister infant Asthma Social History marital status: unmarried,living together (Lives w/ FOB. ) number of children: 2 household members: significant other and children (Boyfriend's children, age 6 & 9. ) lives independently: Yes caregiver/support person: No housing: house pets and animals: Yes (1 Cat; aware. ) education level: college (Working on Bachelor's in Aviation Mechanics.) occupational status: employed (Works on [employer], now has desk job r/t . ) current occupational exposures/hazards: No special lilly needs: No seatbelt use: always working smoke detector in home: Yes carbon monox detector in home: Yes firearms in home: Yes firearms unloaded and locked: Yes do you feel safe at home: Yes Smoking Status: Former smoker Tobacco: How many years used: 5 quit status: has quit before second hand exposure: No alcohol intake: former (Pre-: rarely, but situational. ) substance use type: does not use during the past year weight has: remained stable well-balanced diet: daily or most days daily servings fruits/ve-4 caffeine: No (Quit w . ) Type(s) of exercise: weight lifting (Pre-: weighted lifts / squats, gym daily. ) and normal ROM and activity frequency: daily Smoking Status: Former smoker tobacco type: vaping alcohol intake frequency: 0-2 drinks per day Alcohol type: beer, wine and hard liquor Substance Use Type: does not use Exam <Nate Carrillo PA-C - Last Filed: 05/13/22 12:48> Initial Vital Signs Initial Vital Signs: Vital Signs Temperature 98.0 F 05/07/22 14:37 Pulse Rate 86 05/07/22 14:37 Respiratory Rate 18 05/07/22 14:37 Blood Pressure 105/67 05/07/22 14:37 Pulse Oximetry 98 05/07/22 14:37 Oxygen Delivery Method 05/07/22 14:37 Const General: cooperative HENMT Head: normocephalic and atraumatic Ears: external ears normal and TM's normal bilaterally Nose: external nose normal and No nasal discharge Face and sinus: sinuses nontender, face symmetric, no sinus tenderness and No dry mucous membranes Mouth: oral mucosae normal and moist mucous membranes Teeth and gingiva: dentition normal Throat: tonsils normal and uvula midline Eyes General: Yes appearance normal, both eyes and all related structures Eyelids: eyelids normal Conjunctivae: conjunctivae normal Sclera: sclerae normal Pupils: PERRL EOM: EOM intact bilaterally Neck Neck: normal visual inspection, trachea midline, No lymphadenopathy, No midline deformity and No JVD Lymphatic: No lymphedema Chest Chest: normal inspection of the chest Resp Effort & Inspection: normal respiratory effort, able to speak in complete s entences, no respiratory distress and no use of accessory muscles Auscultation: clear to auscultation bilaterally, no rales, no rhonchi and no wheezes Cardio Rate: regular rate Rhythm: regular rhythm Heart Sounds: no click, no gallops, no murmurs and no rubs Pulses: normal peripheral pulses GI Inspection: non-distended Palpation: soft, no hepatosplenomegaly, No guarding, No pulsatile mass and No tender Auscultation: normal bowel sounds Back/Spine/Pelvis Back: No CVA tenderness Cervical Spine: cervical ROM normal and No pain with cervical ROM Thoracic/Lumbar Spine: thoracic and lumbar spine normal to inspection Other: No paraspinal or midline tenderness to palpation. No bruising. Full range of motion. Neurovascularly intact. No rashes noted. Skin General: no rashes or lesions noted, No jaundice and No petechiae Neuro General: patient alert, patient oriented x3, gait normal and no focal motor deficits Speech: speech normal Extrem General: full ROM, no clubbing, cyanosis or edema, no pedal edema and no calf tenderness Psych Appearance: well kempt Mental Status: mental status grossly normal Attitude: cooperative Thought Content: normal and suicidality Judgment: judgment good <Oscar Watkins MD - Last Filed: 05/26/22 07:00> Initial Vital Signs Initial Vital Signs: Vital Signs Temperature 98.0 F 05/07/22 14:37 Pulse Rate 86 05/07/22 14:37 Respiratory Rate 18 05/07/22 14:37 Blood Pressure 105/67 05/07/22 14:37 Pulse Oximetry 98 05/07/22 14:37 Oxygen Delivery Method 05/07/22 14:37 Course <Nate Carrillo PA-C - Last Filed: 05/13/22 12:48> Orders Ordered: Discontinued Medications Cyclobenzaprine HCl (Cyclobenzaprine 10 Mg Tablet) 10 mg PO NOW ONE Stop: 05/07/22 16:00 Last Admin: 05/07/22 16:12 Dose: 10 mg Documented By: SELENE Ketorolac Tromethamine (Ketorolac 30 Mg/Ml Vial) 30 mg IM NOW ONE Stop: 05/07/22 16:00 Last Admin: 05/07/22 16:12 Dose: 30 mg Documented By: SELENE Vital Signs Vital signs: Vital Signs - 8 hr 05/07/22 14:37 Temperature 98.0 F Pulse Rate 86 Respiratory Rate 18 Blood Pressure 105/67 Pulse Oximetry 98 Oxygen Delivery Method Room Air <Oscar Watkins MD - Last Filed: 05/26/22 07:00> Orders Ordered: Discontinued Medications Cyclobenzaprine HCl (Cyclobenzaprine 10 Mg Tablet) 10 mg PO NOW ONE Stop: 05/07/22 16:00 Last Admin: 05/07/22 16:12 Dose: 10 mg Documented By: SELENE Ketorolac Tromethamine (Ketorolac 30 Mg/Ml Vial) 30 mg IM NOW ONE Stop: 05/07/22 16:00 Last Admin: 05/07/22 16:12 Dose: 30 mg Documented By: SELENE Vital Signs Vital signs: Vital Signs - 8 hr 05/07/22 14:37 Temperature 98.0 F Pulse Rate 86 Respiratory Rate 18 Blood Pressure 105/67 Pulse Oximetry 98 Oxygen Delivery Method Room Air MDM - Back Pain/Injury <Nate Carrillo PA-C - Last Filed: 05/13/22 12:48> MDM Narrative Medical decision making narrative: 26-year-old female with no reported past medical history presents to the ED with 1 day of lower back pain. Given no red flags regarding the back pain including saddle paresthesias, numbness, tingling, weakness of lower extremities, urinary problems, patient's symptoms are likely due to a lower back sprain/strain. Will give ketorolac, Flexeril for symptoms. Likely discharge home with Flexeril. Patient's symptoms improved with Flexeril and ketorolac. Discharge patient home with ED return precautions. Patient verbalized understanding. Discharge Plan Departure Patient Disposition: Home Clinical Impression: Strain of lumbar region Instructions: DI for Back Strain or Sprain Activity Restrictions/Additional Instructions: You were evaluated in the ED today for lower back pain. Your symptoms are likely due to a back sprain/strain. Your symptoms improved with Toradol and Flexeril. You have been prescribed Flexeril for the next few days. You may take ibuprofen 800 mg 3 times a day in addition to the Flexeril please take the ibuprofen with food. Return to the ED if your symptoms worsen, you experience fever, chills, numbness, tingling, weakness, urinary problems. Prescriptions: New cyclobenzaprine 10 mg tablet 10 mg PO TID PRN (Reason: muscle spasm) Qty: 20 0RF No Action ferrous sulfate [Feosol] 325 mg (65 mg iron) tablet 325 mg PO DAILY Qty: 90 1RF pantoprazole [Protonix] 40 mg tablet,delayed release (DR/EC) 40 mg PO DAILY prenat.vits,chani,[id number]-[id number] Tablet 1 tab PO DAILY Referrals: Jacques Tamayo [Primary Care Provider] - Visit Report Forms: Patient Portal/API <Oscar Watkins MD - Last Filed: 05/26/22 07:00> Cosign ED Attending Jenniature Attestation: I was immediately available for consultation of this patient was seen and evaluated by the APC in the department.
[2022-05-07] MEDS: KETOROLAC 30 MG/ML VIAL IM (16:12)
[2022-05-07] MEDS: CYCLOBENZAPRINE 10 MG TABLET PO (16:12)
== END 2022-05-07 16:51 | disposition home or self-care (01) ==
PROVIDERS: Emergency Provider Student in an Organized Health Care Education/Training Program; PCP Student in an Organized Health Care Education/Training Program
DX: S39.012A Strain of muscle, fascia and tendon of lower back, initial encounter (principal); X50.1XXA Overexertion from prolonged static or awkward postures, initial encounter
CPT/HCPCS: 96372; 99283; J1885

== ENCOUNTER 2022-06-19 11:51 | Emergency (ER) | payer OTHER, SELFPAY ==
[2022-06-19 12:02] VITALS: BP 113/68; PULSE 86; RESP 16; TEMP 36.5; O2SAT 100; BMI 23.0
[2022-06-19 12:38] LABS: Appearance Urine UA SL CLOUDY; Bilirubin Urine UA NEGATIVE (NEGATIVE); Color Urine UA YELLOW; Glucose Urine UA NEGATIVE (Negative); Ketones Urine UA NEGATIVE (NEGATIVE); Leukocyte Esterase Urine UA TRACE (NEGATIVE); Nitrite Urine UA NEGATIVE (Negative); Occult Blood Urine UA 3+ (Negative); Protein Urine UA NEGATIVE (Negative); Specific Gravity Urine UA 1.015 (1.000-1.035); Urobilinogen Urine UA 0.2 E.U./dL (0.2)
[2022-06-19 12:41] LABS: Add Manual Diff / Slide Review NO; Basophils Absolute Auto 0 /uL (0-100); Basophils Percent Auto 0.4 % (0-2); Eosinophils Absolute Auto 0 /uL (0-450); Eosinophils Percent Auto 0.4 % (2-4); Hematocrit 36.3 % (36-46); Hemoglobin 12.3 g/dL (12.0-16.0); Lymphocytes Absolute Auto 2000 /uL (1100-4500); Lymphocytes Percent Auto 23.9 % (25-40); Mean Corpuscular HGB Conc 33.9 % (30-36); Mean Corpuscular Hemoglobin 30.5 PG (26-34); Mean Corpuscular Volume 89.8 fL (80-100); Monocytes Absolute Auto 500 /uL (0-900); Monocytes Percent Auto 5.7 % (3-14); Neutrophils Absolute Auto 5900 /uL (1500-7000); Neutrophils Percent Auto 69.6 % (50-75); Platelet Count 305 X10^3/uL (150-400); Red Blood Cell Count 4.04 X10^6/uL (4.0-5.2); Red Cell Distribution Width 13.9 % (11.6-14.8); White Blood Cell Count 8.4 X10^3/uL (4.5-11.0)
[2022-06-19 12:44] LABS: Pregnancy Test Urine Negative (Negative)
[2022-06-19 12:50] LABS: pH Urine UA 5.5 (4.5-8.0)
[2022-06-19 12:51] LABS: RBC Urine >100/HPF (0-5/HPF); Squamous Epithelial Cell Urine 1-5 /HPF (0-5/HPF); WBC Urine 1-5/HPF (0-5/HPF)
[2022-06-19 12:52] LABS: Bacteria Urine None Seen; Culture Indicated Urine Cult Not Indicated
[2022-06-19 12:53] LABS: Alanine Aminotransferase 10 IU/L (<35); Albumin 4.4 g/dL (3.5-5.0); Albumin Globulin Ratio 1.3 (1.0-2.8); Alkaline Phosphatase 70 U/L (38-126); Aspartate Aminotransferase 15 IU/L (14-36); BUN Creatinine Ratio 12.2 (6-22); Bilirubin Total 0.4 mg/dL (0.2-1.3); Blood Urea Nitrogen 10 mg/dL (7-17); Calcium 8.8 mg/dL (8.4-10.2); Carbon Dioxide 26 mmol/L (22-32); Chloride 105 mmol/L (98-107); Estimated Glomerular Filt Rate > 60 mL/min (>60); Globulin 3.3 g/dL (1.7-4.1); Glucose 98 mg/dL (70-100); HEMOLYSIS < 15 (0-50); Lipase 49 U/L (23-300); Potassium 3.5 mmol/L (3.4-5.1); Sodium 140 mmol/L (137-145); Total Protein 7.7 g/dL (6.3-8.2)
[2022-06-19 13:00] LABS: INR 1.1 (0.9-1.3); Prothrombin Time 12.7 SECONDS (10.1-12.7)
[2022-06-19 13:02] LABS: PTT Partial Thromboplastin Tim 29 SECONDS (26-36)
[2022-06-19] MEDS: KETOROLAC 30 MG/ML VIAL 15 MG IV (14:24)
[2022-06-19] MEDS: LIDOCAINE PATCH 1 EACH ADH..PATCH TOP (14:24)
[2022-06-19] MEDS: ACETAMINOPHEN 325 MG TABLET 975 MG PO (14:24)
--- NOTE | 2022-06-19 14:41 | ED.ABDPAIN ---
HPI - Abdominal Pain <Jasmin Beckwith, [facility] - Last Filed: 06/19/22 14:51> General Chief Complaint: Abdominal Pain Stated Complaint: Lump left side/lower abdomen/pain Time Seen by Provider: 06/19/22 13:47 Source: patient Mode of arrival: Ambulatory History of Present Illness HPI narrative: This is a 26-year-old female over 10 months who presents to the emergency department endorsing that she has had weight loss over the last 10 months and with her weight loss she noticed weakening in her abdominal wall on the left lower side which is small, approximately 1 cm without any protrusion. She also endorses sciatica and low back pain on the left. 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 She states that she has an active job and does do a lot of bending and squatting. She states that she is concerned about her weight loss and states she is been having this left-sided sciatic pain for the last 1-2 weeks which is constant. She denies any weakness or sensation changes at baseline, denies any recent fever illness. [place] hernia on her left abdomen. She was seen in the emergency department for a strain of her lumbar spine on 05/07/2022. Patient states that her pain is alleviated by bending forward, twisting.?Patient does carry her child around who is 25 lb. Patient does not recall any trauma. Patient has no history of lower back problems.? Patient denies numbness, tingling, weakness in her legs.?Patient denies saddle paresthesias, urinary hesitancy, urinary frequency, urinary urgency, bowel incontinence.? Patient denies IV drug use.? Patient denies fever, chills, nausea, vomiting, chest pain, shortness of breath. Related Data Home Medications Medication Instructions Recorded Confirmed prenat.vits,chani,ezd-oqse-inajy 1 tab PO DAILY 12/26/20 08/29/21 pantoprazole 40 mg tablet,delayed 40 mg PO DAILY 05/31/21 08/29/21 release (Protonix) Previous Rx's Medication Instructions Recorded ferrous sulfate 325 mg (65 mg 325 mg PO DAILY #90 tabs 03/27/21 iron) tablet (Feosol) cyclobenzaprine 10 mg tablet 10 mg PO TID PRN muscle spasm #20 05/07/22 tabs ketorolac 10 mg tablet 10 mg PO TID PRN pain 5 days #14 06/19/22 tabs lidocaine 5 % topical patch 1 patch topical DAILY PRN pain #15 06/19/22 (Lidoderm) ea methocarbamol 500 mg tablet 500 mg PO BEDTIME #14 tabs 06/19/22 methylprednisolone 4 mg tablets in See Rx Instructions PO .COMPLEX 06/19/22 a dose pack (Medrol (Finn)) #21 ea polyethylene glycol 3350 17 17 g PO BID #119 grams 06/19/22 gram/dose oral powder (Miralax) Allergies Allergy/AdvReac Type Severity Reaction Status Date / Time No Known Drug Allergies Allergy Verified 07/30/21 02:36 Review of Systems <NICOLAS Best - Last Filed: 06/19/22 14:51> Review of Systems Narrative: Review of systems is negative for acute abnormalities unless otherwise noted in HPI Patient History <NICOLAS Best - Last Filed: 06/19/22 14:51> Medical History Anemia affecting GERD (gastroesophageal reflux disease) (~2015) No significant past medical history Surgical History No pertinent past surgical history [place] teeth extracted Family History Mother Chain smoker Father Family estrangement Grandmother Lung cancer Smoker Grandfather Smoker COPD (chronic obstructive pulmonary disease) Grandmother Diabetes mellitus Grandfather Diabetes mellitus Sister Asthma Social History marital status: unmarried,living together (Lives w/ FOB. ) number of children: 2 household members: significant other and children (Boyfriend's children, age 6 & 9. ) lives independently: Yes caregiver/support person: No housing: house pets and animals: Yes (1 Cat; aware. ) education level: college (Working on Bachelor's in Aviation Mechanics.) occupational status: employed (Works on [employer], now has desk job r/t . ) current occupational exposures/hazards: No special lilly needs: No seatbelt use: always working smoke detector in home: Yes carbon monox detector in home: Yes firearms in home: Yes firearms unloaded and locked: Yes do you feel safe at home: Yes Smoking Status: Current every day smoker Tobacco: How many years used: 5 quit status: has quit before second hand exposure: No alcohol intake: former (Pre-: rarely, but situational. ) substance use type: does not use during the past year weight has: remained stable well-balanced diet: daily or most days daily servings fruits/ve-4 caffeine: No (Quit w . ) Type(s) of exercise: weight lifting (Pre-: weighted lifts / squats, gym daily. ) and normal ROM and activity frequency: daily Smoking Status: Current every day smoker tobacco type: vaping alcohol intake frequency: 0-2 drinks per day Alcohol type: beer, wine and hard liquor Substance Use Type: does not use Exam <NICOLAS Best - Last Filed: 06/19/22 14:51> Narrative Exam Narrative: Reviewed vitals signs and nursing notes. General: cooperative, comfortable, in no acute distress, well groomed HEENT: symmetrical facial expressions, moist mucous membranes Cardiovascular: regular rate and rhythm, no peripheral edema, warm extremities Respiratory: normal effort, able to speak in complete sentences, without wheezing, stridor, or abnormal breath sounds. No retractions or tachypnea. GI: abdomen soft, nontender to palpation, nondistended, without masses, rebound tenderness or exquisite tenderness with exam. Lower left abdominal wall with small abdominal wall hernia, no protrusion or significant tenderness to palpation, no surrounding erythema, no open wound. MSK: moves all extremities, neurovascularly intact, no weakness, normal tone bilateral leg raise elicits low back pain Skin: brisk capillary refill, without pallor or erythema Neuro: normal speech and cognition, A&O x3, ambulatory, clear speech Psych: mental status is grossly normal, congruent mood, normal affect, pleasant and cooperative Initial Vital Signs Initial Vital Signs: Vital Signs Temperature 97.7 F 06/19/22 12:02 Pulse Rate 86 06/19/22 12:02 Respiratory Rate 16 06/19/22 12:02 Blood Pressure 113/68 06/19/22 12:02 Pulse Oximetry 100 06/19/22 12:02 Oxygen Delivery Method 06/19/22 12:02 <Shannen Vizcaino DO - Last Filed: 06/20/22 10:49> Initial Vital Signs Initial Vital Signs: Vital Signs Temperature 97.7 F 06/19/22 12:02 Pulse Rate 86 06/19/22 12:02 Respiratory Rate 16 06/19/22 12:02 Blood Pressure 113/68 06/19/22 12:02 Pulse Oximetry 100 06/19/22 12:02 Oxygen Delivery Method 06/19/22 12:02 Course <Jasmin Beckwith [facility] - Last Filed: 06/19/22 14:51> Orders Ordered: Discontinued Medications Acetaminophen (Acetaminophen 325 Mg Tablet) 975 mg PO NOW ONE Stop: 06/19/22 14:17 Last Admin: 06/19/22 14:24 Dose: 975 mg Documented By: BS Ketorolac Tromethamine (Ketorolac 30 Mg/Ml Vial) 15 mg IV NOW ONE Stop: 06/19/22 14:17 Last Admin: 06/19/22 14:24 Dose: 15 mg Documented By: BS Lidocaine (Lidocaine Patch 1 Each Adh..Patch) 1 each TOP NOW ONE Stop: 06/19/22 14:17 Last Admin: 06/19/22 14:24 Dose: 1 each Documented By: BS Vital Signs Vital signs: Vital Signs - 8 hr 06/19/22 12:02 Temperature 97.7 F Pulse Rate 86 Respiratory Rate 16 Blood Pressure 113/68 Pulse Oximetry 100 Oxygen Delivery Method Room Air <Shannen Vizcaino DO - Last Filed: 06/20/22 10:49> Orders Ordered: Discontinued Medications Acetaminophen (Acetaminophen 325 Mg Tablet) 975 mg PO NOW ONE Stop: 06/19/22 14:17 Last Admin: 06/19/22 14:24 Dose: 975 mg Documented By: BS Ketorolac Tromethamine (Ketorolac 30 Mg/Ml Vial) 15 mg IV NOW ONE Stop: 06/19/22 14:17 Last Admin: 06/19/22 14:24 Dose: 15 mg Documented By: BS Lidocaine (Lidocaine Patch 1 Each Adh..Patch) 1 each TOP NOW ONE Stop: 06/19/22 14:17 Last Admin: 06/19/22 14:24 Dose: 1 each Documented By: BS Vital Signs Vital signs: Vital Signs - 8 hr 06/19/22 12:02 Temperature 97.7 F Pulse Rate 86 Respiratory Rate 16 Blood Pressure 113/68 Pulse Oximetry 100 Oxygen Delivery Method Room Air MDM - Abdominal Pain <Jasmin Beckwith, [facility] - Last Filed: 06/19/22 14:51> Lab Data Result diagrams: 06/19/22 12:29 06/19/22 12:29 Labs: Lab Results 06/19/22 06/19/22 06/19/22 Range/Units 12:15 12:15 12:29 WBC 8.4 (4.5-11.0) X10^3/uL RBC 4.04 (4.0-5.2) X10^6/uL Hgb 12.3 (12.0-16.0) g/dL Hct 36.3 (36-46) % MCV 89.8 (80-100) fL MCH 30.5 (26-34) PG MCHC 33.9 (30-36) % RDW 13.9 (11.6-14.8) % Plt Count 305 (150-400) X10^3/uL Neut % (Auto) 69.6 (50-75) % Lymph % (Auto) 23.9 L (25-40) % [place] % (Auto) 5.7 (3-14) % Eos % (Auto) 0.4 L (2-4) % Baso % (Auto) 0.4 (0-2) % Neut # (Auto) 5900 (5924-2723) /uL Lymph # (Auto) 2000 (7436-7060) /uL [place] # (Auto) 500 (0-900) /uL Eos # (Auto) 0 (0-450) /uL Baso # (Auto) 0 (0-100) /uL PT (10.1-12.7) SECONDS INR (0.9-1.3) APTT (26-36) SECONDS Sodium (137-145) mmol/L Potassium (3.4-5.1) mmol/L Chloride (98-107) mmol/L Carbon Dioxide (22-32) mmol/L BUN (7-17) mg/dL Creatinine (0.52-1.04) mg/dL Estimated GFR (>60) mL/min BUN/Creatinine Ratio (6-22) Glucose (70-100) mg/dL Calcium (8.4-10.2) mg/dL Total Bilirubin (0.2-1.3) mg/dL AST (14-36) IU/L ALT (<35) IU/L Alkaline Phosphatase (38-126) U/L Total Protein (6.3-8.2) g/dL Albumin (3.5-5.0) g/dL Globulin (1.7-4.1) g/dL Albumin/Globulin Ratio (1.0-2.8) Lipase (23-300) U/L Urine Color Yellow Urine Appearance Sl cloudy Urine pH 5.5 (4.5-8.0) Ur Specific [place] 1.015 (1.000-1.035) Urine Protein Negative (Negative) Urine Glucose (UA) Negative (Negative) g/dL Urine Ketones Negative (NEGATIVE) Urine Occult Blood 3+ H (Negative) Urine Nitrate Negative (Negative) Urine Bilirubin Negative (NEGATIVE) Urine Urobilinogen 0.2 (0.2) E.U./dL Ur Leukocyte Esterase Trace H (NEGATIVE) Urine RBC >100/hpf H (0-5/HPF) Urine WBC 1-5/hpf (0-5/HPF) Ur Squamous Epith Cells 1-5 /hpf (0-5/HPF) Urine Bacteria None seen (None) Ur Culture Indicated? Cult not indicated Urine Test Negative (Negative) 06/19/22 06/19/22 Range/Units 12:29 12:29 WBC (4.5-11.0) X10^3/uL RBC (4.0-5.2) X10^6/uL Hgb (12.0-16.0) g/dL Hct (36-46) % MCV (80-100) fL MCH (26-34) PG MCHC (30-36) % RDW (11.6-14.8) % Plt Count (150-400) X10^3/uL Neut % (Auto) (50-75) % Lymph % (Auto) (25-40) % [place] % (Auto) (3-14) % Eos % (Auto) (2-4) % Baso % (Auto) (0-2) % Neut # (Auto) (2487-4044) /uL Lymph # (Auto) (5656-1505) /uL [place] # (Auto) (0-900) /uL Eos # (Auto) (0-450) /uL Baso # (Auto) (0-100) /uL PT 12.7 (10.1-12.7) SECONDS INR 1.1 (0.9-1.3) APTT 29 (26-36) SECONDS Sodium 140 (137-145) mmol/L Potassium 3.5 (3.4-5.1) mmol/L Chloride 105 (98-107) mmol/L Carbon Dioxide 26 (22-32) mmol/L BUN 10 (7-17) mg/dL Creatinine 0.82 (0.52-1.04) mg/dL Estimated GFR > 60 (>60) mL/min BUN/Creatinine Ratio 12.2 (6-22) Glucose 98 (70-100) mg/dL Calcium 8.8 (8.4-10.2) mg/dL Total Bilirubin 0.4 (0.2-1.3) mg/dL AST 15 (14-36) IU/L ALT 10 (<35) IU/L Alkaline Phosphatase 70 (38-126) U/L Total Protein 7.7 (6.3-8.2) g/dL Albumin 4.4 (3.5-5.0) g/dL Globulin 3.3 (1.7-4.1) g/dL Albumin/Globulin Ratio 1.3 (1.0-2.8) Lipase 49 (23-300) U/L Urine Color Urine Appearance Urine pH (4.5-8.0) Ur Specific [place] (1.000-1.035) Urine Protein (Negative) Urine Glucose (UA) (Negative) g/dL Urine Ketones (NEGATIVE) Urine Occult Blood (Negative) Urine Nitrate (Negative) Urine Bilirubin (NEGATIVE) Urine Urobilinogen (0.2) E.U./dL Ur Leukocyte Esterase (NEGATIVE) Urine RBC (0-5/HPF) Urine WBC (0-5/HPF) Ur Squamous Epith Cells (0-5/HPF) Urine Bacteria (None) Ur Culture Indicated? Urine Test (Negative) MDM Narrative Medical decision making narrative: This is a 26-year-old female who presents to the emergency department today for left abdominal wall tenderness with concern for hernia and low back pain with sciatica symptoms down her left leg. Patient has weight loss since her 10 and half months ago. Patient has a small left abdominal wall hernia without any protrusion, incarceration, necrosis, her lab work overall is reassuring without any leukocytosis, anemia, electrolyte abnormalities, lipase elevation or elevation of her liver enzymes. Her urine shows blood without bacteria or leukocyte esterase and patient has started her menses today. She has history of low back strain of her lumbar spine in April states that she is had left-sided sciatica and occasional rales than she has been using Tylenol and ibuprofen and states the Flexeril does not help. Today she was given Toradol in the emergency department and prescribed a steroid Dosepak for worsening sciatica symptoms, lidocaine patches, methocarbamol and encouraged to use heat and ice, rest, avoid bending and twisting if it worsens the pain, stay hydrated, eat food with medications and to follow-up with [facility]. A consultation was placed for General surgery so patient can follow-up for hernia repair. Encourage patient to follow-up with [facility], try physical therapy for both her abdominal wall and for her low back pain. I suspect she likely has a herniated disc or disc degeneration secondary to previous obesity and recent . She does not have any symptoms of cauda equina, saddle anesthesia, muscle weakness, recent fever, numbness or tingling, no history of IV drug use, no incontinence or urinary retention. Patient is appropriate and amenable to discharge home. Vital signs are stable on repeat examination is unremarkable. Patient has been informed of results. Patient has been given strict return to ER precautions for any new or worsening symptoms. Patient understands to follow up closely with outpatient providers as instructed. Patient understands plan and agrees to discharge home. All questions and concerns answered at this time. <Shannen Vizcaino, DO - Last Filed: 06/20/22 10:49> Lab Data Labs: Lab Results 06/19/22 06/19/22 06/19/22 Range/Units 12:15 12:15 12:29 WBC 8.4 (4.5-11.0) X10^3/uL RBC 4.04 (4.0-5.2) X10^6/uL Hgb 12.3 (12.0-16.0) g/dL Hct 36.3 (36-46) % MCV 89.8 (80-100) fL MCH 30.5 (26-34) PG MCHC 33.9 (30-36) % RDW 13.9 (11.6-14.8) % Plt Count 305 (150-400) X10^3/uL Neut % (Auto) 69.6 (50-75) % Lymph % (Auto) 23.9 L (25-40) % [place] % (Auto) 5.7 (3-14) % Eos % (Auto) 0.4 L (2-4) % Baso % (Auto) 0.4 (0-2) % Neut # (Auto) 5900 (8206-0421) /uL Lymph # (Auto) 2000 (9930-9902) /uL [place] # (Auto) 500 (0-900) /uL Eos # (Auto) 0 (0-450) /uL Baso # (Auto) 0 (0-100) /uL PT (10.1-12.7) SECONDS INR (0.9-1.3) APTT (26-36) SECONDS Sodium (137-145) mmol/L Potassium (3.4-5.1) mmol/L Chloride (98-107) mmol/L Carbon Dioxide (22-32) mmol/L BUN (7-17) mg/dL Creatinine (0.52-1.04) mg/dL Estimated GFR (>60) mL/min BUN/Creatinine Ratio (6-22) Glucose (70-100) mg/dL Calcium (8.4-10.2) mg/dL Total Bilirubin (0.2-1.3) mg/dL AST (14-36) IU/L ALT (<35) IU/L Alkaline Phosphatase (38-126) U/L Total Protein (6.3-8.2) g/dL Albumin (3.5-5.0) g/dL Globulin (1.7-4.1) g/dL Albumin/Globulin Ratio (1.0-2.8) Lipase (23-300) U/L Urine Color Yellow Urine Appearance Sl cloudy Urine pH 5.5 (4.5-8.0) Ur Specific [place] 1.015 (1.000-1.035) Urine Protein Negative (Negative) Urine Glucose (UA) Negative (Negative) g/dL Urine Ketones Negative (NEGATIVE) Urine Occult Blood 3+ H (Negative) Urine Nitrate Negative (Negative) Urine Bilirubin Negative (NEGATIVE) Urine Urobilinogen 0.2 (0.2) E.U./dL Ur Leukocyte Esterase Trace H (NEGATIVE) Urine RBC >100/hpf H (0-5/HPF) Urine WBC 1-5/hpf (0-5/HPF) Ur Squamous Epith Cells 1-5 /hpf (0-5/HPF) Urine Bacteria None seen (None) Ur Culture Indicated? Cult not indicated Urine Test Negative (Negative) 06/19/22 06/19/22 Range/Units 12:29 12:29 WBC (4.5-11.0) X10^3/uL RBC (4.0-5.2) X10^6/uL Hgb (12.0-16.0) g/dL Hct (36-46) % MCV (80-100) fL MCH (26-34) PG MCHC (30-36) % RDW (11.6-14.8) % Plt Count (150-400) X10^3/uL Neut % (Auto) (50-75) % Lymph % (Auto) (25-40) % [place] % (Auto) (3-14) % Eos % (Auto) (2-4) % Baso % (Auto) (0-2) % Neut # (Auto) (4461-6521) /uL Lymph # (Auto) (4430-5628) /uL [place] # (Auto) (0-900) /uL Eos # (Auto) (0-450) /uL Baso # (Auto) (0-100) /uL PT 12.7 (10.1-12.7) SECONDS INR 1.1 (0.9-1.3) APTT 29 (26-36) SECONDS Sodium 140 (137-145) mmol/L Potassium 3.5 (3.4-5.1) mmol/L Chloride 105 (98-107) mmol/L Carbon Dioxide 26 (22-32) mmol/L BUN 10 (7-17) mg/dL Creatinine 0.82 (0.52-1.04) mg/dL Estimated GFR > 60 (>60) mL/min BUN/Creatinine Ratio 12.2 (6-22) Glucose 98 (70-100) mg/dL Calcium 8.8 (8.4-10.2) mg/dL Total Bilirubin 0.4 (0.2-1.3) mg/dL AST 15 (14-36) IU/L ALT 10 (<35) IU/L Alkaline Phosphatase 70 (38-126) U/L Total Protein 7.7 (6.3-8.2) g/dL Albumin 4.4 (3.5-5.0) g/dL Globulin 3.3 (1.7-4.1) g/dL Albumin/Globulin Ratio 1.3 (1.0-2.8) Lipase 49 (23-300) U/L Urine Color Urine Appearance Urine pH (4.5-8.0) Ur Specific [place] (1.000-1.035) Urine Protein (Negative) Urine Glucose (UA) (Negative) g/dL Urine Ketones (NEGATIVE) Urine Occult Blood (Negative) Urine Nitrate (Negative) Urine Bilirubin (NEGATIVE) Urine Urobilinogen (0.2) E.U./dL Ur Leukocyte Esterase (NEGATIVE) Urine RBC (0-5/HPF) Urine WBC (0-5/HPF) Ur Squamous Epith Cells (0-5/HPF) Urine Bacteria (None) Ur Culture Indicated? Urine Test (Negative) Discharge Plan Departure Patient Disposition: Home Clinical Impression: Abdominal wall hernia Acute low back pain with sciatica Qualifiers: Back pain laterality: bilateral Sciatica laterality: sciatica of left side Qualified Code(s): M54.42 - Lumbago with sciatica, left side Instructions: DI for Herniated Disc, Abdominal Hernia, DI for Back Pain With Sciatica Activity Restrictions/Additional Instructions: *You have been diagnosed with an abdominal wall hernia. There is no protrusion of your abdominal contents, and this appears to be safe, your lab work does not show any signs of infection or inflammation. Please start taking MiraLax to soften your stools so that it is not painful while you have bowel movements. This can help improve your hernia pain and prevent it from getting bigger. Please stay hydrated throughout the day, use the medications as needed for your abdominal pain and/or your low back pain with sciatica. Try to stay in his schedule of anti-inflammatories and Tylenol throughout the day with lidocaine patches and use methocarbamol as needed at nighttime to help you sleep and for muscle spasm. The steroid pack will decrease your inflammation but I encourage you to follow-up with [facility] and follow-up with physical therapy. Obtain [facility] approval and you can make an appointment at [facility] which is the phone number attached to Dr. Molina for surgical repair of your abdominal wall hernia. If you develop a fever, nausea vomiting, or severe pain in this area please come back to emergency department for evaluation. *What to do: *Please continue to take your regular medications as directed. [ x] New medication prescriptions sent to your pharmacy: [ DOD] [ ] New medication written as a paper prescription [ ] No new medications given *Please follow up with your primary care provider in 2-3 days, call for an appointment. Let them know you were seen in the Emergency Department and that we asked that you be seen for follow-up. We will electronically transmit a record of today's note if your PCP is in our system *If you do not have a primary care provider please contact [phone] to establish care with one of the [facility] primary care providers. *Return to Emergency Department if you should have any new, worsening, or concerning symptoms, such as [fever greater than 101F, chills, worsening pain, persistent vomiting or other bothersome symptoms]. Prescriptions: New methylprednisolone [Medrol (Finn)] 4 mg tablets,dose pack See Rx Instructions .ROUTE .COMPLEX Qty: 21 0RF Rx Instructions: orally per package directions ketorolac 10 mg tablet 10 mg PO TID PRN (Reason: pain) 5 Days Qty: 14 0RF Rx Instructions: Please take with food and water to prevent ulcer methocarbamol 500 mg tablet 500 mg PO BEDTIME Qty: 14 0RF lidocaine [Lidoderm] 5 % adhesive patch,medicated 1 patch topical DAILY PRN (Reason: pain) Qty: 15 0RF Rx Instructions: leave on most painful area for up to 12 hrs polyethylene glycol 3350 [Miralax] 17 gram/dose powder 17 g PO BID Qty: 119 0RF No Action ferrous sulfate [Feosol] 325 mg (65 mg iron) tablet 325 mg PO DAILY Qty: 90 1RF pantoprazole [Protonix] 40 mg tablet,delayed release (DR/EC) 40 mg PO DAILY prenat.vits,chani,dma-cksy-zlmhc Tablet 1 tab PO DAILY cyclobenzaprine 10 mg tablet 10 mg PO TID PRN (Reason: muscle spasm) Qty: 20 0RF Referrals: Jacques Tamayo [Primary Care Provider] - Dudley Molina MD [Physician] - Visit Report Forms: Patient Portal/API <Shannen Vizcaino DO - Last Filed: 06/20/22 10:49> Cosign ED Attending Cosanupamaature Attestation: I was immediately available in the department for consultation. Documentation has been reviewed. I agree with assessment and plan.
[2022-06-19 14:46] VITALS: BP 120/70; PULSE 86; RESP 16; O2SAT 99
== END 2022-06-19 14:46 | disposition home or self-care (01) ==
PROVIDERS: Emergency Medicine; Emergency Provider Nurse Practitioner Critical Care Medicine; PCP Student in an Organized Health Care Education/Training Program
DX: K43.9 Ventral hernia without obstruction or gangrene (principal); M54.42 Lumbago with sciatica, left side
CPT/HCPCS: 36415; 80053; 81001; 81025; 83690; 85025; 85610; 85730; 96374; 99283; 99284; J1885

== ENCOUNTER → 2022-07-23 08:58 | Outpatient (CLI) | payer OTHER, SELFPAY ==
--- NOTE | 2022-07-23 08:59 | DI.US.S_ITS ---
PROCEDURE: US ABDOMEN LIMITED INDICATIONS: Left groin pain and right mid upper abdomen pain TECHNIQUE: Real-time focused scanning was performed of the abdomen, with image documentation. COMPARISON: None. FINDINGS: The patient indicated 3 areas of concern along the ventral body wall: In the suprapubic region, superior to the umbilicus, and inferior to the umbilicus. Patient noted that these areas were most pronounced while standing, so sonographic evaluation was performed with the patient standing. No ventral abdominal wall hernia, mass, or fluid collection visualized in the superficial soft tissues at the patient indicated areas of concern. IMPRESSION: No ventral abdominal wall hernia or other sonographic abnormality visualized in the superficial soft tissues at the patient indicated areas of concern. Clinical follow-up is recommended and if additional imaging is desired, CT of the abdomen and pelvis may be helpful for further evaluation. If performed, placing skin markers at the areas of concern at the time of the exam may be helpful. Dictated by: Massimo Covarrubias M.D. on 07/23/2022 at 13:06 Approved by: Massimo Covarrubias M.D. on 07/23/2022 at 13:13
== END ==
PROVIDERS: PCP Student in an Organized Health Care Education/Training Program; Referring Provider Surgery; Visit Provider Surgery
DX: R10.9 Unspecified abdominal pain (principal)
CPT/HCPCS: 76705

== ENCOUNTER → 2022-08-02 10:25 | Outpatient (CLI) | payer OTHER, SELFPAY ==
--- NOTE | 2022-08-02 10:26 | DI.CT.S_ITS ---
PROCEDURE: CT ABDOMEN PELVIS W CON INDICATIONS: abdominal wall masses TECHNIQUE: After the administration of oral and intravenous contrast, axial sections were acquired from the lung bases to the pubic symphysis. Coronal and sagittal reformats were performed. For radiation dose reduction, the following was used: automated exposure control, adjustment of mA and/or kV according to patient size. COMPARISON:None. FINDINGS: Image quality: Excellent. Lung bases: Unremarkable. Heart: No significant findings. ABDOMEN: Liver: Unremarkable. Focal fat is noted at the false form ligament. Gallbladder: Unremarkable. Biliary ducts: Unremarkable. Pancreas: Unremarkable. Spleen: Unremarkable. Adrenal Glands: Unremarkable. Kidneys and Ureters: Unremarkable. Stomach and Bowel: Stomach, small bowel loops, and colon are unremarkable. Peritoneum: No abnormal intraperitoneal fluid. No free air. Ventral Wall: No hernia. Abdominal Nodes: No retroperitoneal or mesenteric adenopathy by size criteria. Vessels: Aorta and inferior vena cava are normal in size. PELVIS: Pelvic Organs: Unr the uterus is grossly unremarkable. The left ovary is unremarkable. There is a 2.2 x 3.1 cm intermediate density cyst within the right ovary. Bladder: Unremarkable. Pelvic Nodes: No enlarged lymph nodes. Miscellaneous: No inguinal hernias are seen. There is no discrete mass in the area delineated by the right mid abdominal BB marker. Bones: Unremarkable. IMPRESSION: 1. Intermediate density right ovarian cyst. Nonemergent pelvic ultrasound is recommended to further characterize this finding. 2. No abdominal wall mass or underlying lesion in the area delineated by the BB marker. 3. No acute intra-abdominal findings. Dictated by: Karen Brito M.D. on 08/02/2022 at 15:25 Approved by: Karen Brito M.D. on 08/02/2022 at 15:29
== END ==
PROVIDERS: PCP Student in an Organized Health Care Education/Training Program; Referring Provider Surgery; Visit Provider Surgery
DX: R22.2 Localized swelling, mass and lump, trunk (principal); N83.201 Unspecified ovarian cyst, right side
CPT/HCPCS: 74177; Q9967

== ENCOUNTER 2022-09-09 07:42 | Emergency (ER) | payer OTHER, SELFPAY ==
[2022-09-09] VITALS (12 sets, daily range): BP systolic 99–112; BP diastolic 66–80; PULSE 68–79; RESP 15–27; TEMP 36.7; O2SAT 91–100; BMI 23.1
[2022-09-09] MEDS: ONDANSETRON 4 MG/2 ML INJ IV (08:45)
[2022-09-09 08:50] LABS: Add Manual Diff / Slide Review NO; Basophils Absolute Auto 0 /uL (0-100); Basophils Percent Auto 0.7 % (0-2); Eosinophils Absolute Auto 100 /uL (0-450); Eosinophils Percent Auto 1.3 % (2-4); Hematocrit 35.3 % (36-46); Hemoglobin 12.1 g/dL (12.0-16.0); Lymphocytes Absolute Auto 2400 /uL (1100-4500); Lymphocytes Percent Auto 43.8 % (25-40); Mean Corpuscular HGB Conc 34.4 % (30-36); Mean Corpuscular Hemoglobin 29.9 PG (26-34); Mean Corpuscular Volume 87.1 fL (80-100); Monocytes Absolute Auto 400 /uL (0-900); Monocytes Percent Auto 7.7 % (3-14); Neutrophils Absolute Auto 2600 /uL (1500-7000); Neutrophils Percent Auto 46.5 % (50-75); Platelet Count 351 X10^3/uL (150-400); Red Blood Cell Count 4.06 X10^6/uL (4.0-5.2); Red Cell Distribution Width 12.8 % (11.6-14.8); White Blood Cell Count 5.6 X10^3/uL (4.5-11.0)
[2022-09-09 09:00] LABS: Alanine Aminotransferase 14 IU/L (<35); Albumin 4.3 g/dL (3.5-5.0); Albumin Globulin Ratio 1.3 (1.0-2.8); Alkaline Phosphatase 82 U/L (38-126); Aspartate Aminotransferase 15 IU/L (14-36); BUN Creatinine Ratio 13.9 (6-22); Bilirubin Total 0.2 mg/dL (0.2-1.3); Blood Urea Nitrogen 10 mg/dL (7-17); Calcium 8.7 mg/dL (8.4-10.2); Carbon Dioxide 22 mmol/L (22-32); Chloride 106 mmol/L (98-107); Estimated Glomerular Filt Rate > 60 mL/min (>60); Globulin 3.2 g/dL (1.7-4.1); Glucose 100 mg/dL (70-100); HEMOLYSIS < 15 (0-50); Lipase 61 U/L (23-300); Potassium 3.9 mmol/L (3.4-5.1); Sodium 139 mmol/L (137-145); Total Protein 7.5 g/dL (6.3-8.2)
[2022-09-09 09:41] LABS: Influenza A - CEPHEID Flu A NEGATIVE (NEGATIVE); Influenza B - CEPHEID Flu B NEGATIVE (NEGATIVE); Respiratory Syncytial Virus Negative (Negative)
[2022-09-09 09:45] LABS: COVID-19 CEPHEID 4-PLEX PCR Negative (Negative)
--- NOTE | 2022-09-09 10:20 | ED.ABDPAIN ---
HPI - Abdominal Pain General Chief Complaint: Abdominal Pain Stated Complaint: body aches abd pain chest tighness Time Seen by Provider: 09/09/22 10:17 Source: patient and old records reviewed Mode of arrival: Family Vehicle Limitations: no limitations History of Present Illness HPI narrative: This is a 27-year-old female who presents with complaint of abdominal pain. Patient states she is had issues for many months but had returned in his worsened today she describes it more on the left side. She denies fevers or chills. She is had nausea but no vomiting. She denies dysuria, urgency or frequency. She is currently on her menses but her tail end. Patient had loose watery stool x2 yesterday. No black or blood. Patient denies any back or flank pain. Patient did see Dr. Bingham because they thought she might have a hernia she does not. They found a right ovarian cyst she is supposed to follow-up to get a pelvic MRI with her primary care physician because her some small lumps on the outer abdomen but are not appreciated on CT imaging. Patient denies major surgeries. No known drug allergies. Denies tobacco, alcohol or illicit. Her daughter was sitting on her abdomen eating snacks while the patient was lying fat when I 1st evaluated her. Related Data Home Medications Medication Instructions Recorded Confirmed pantoprazole 40 mg tablet,delayed 40 mg PO DAILY 05/31/21 08/29/21 release (Protonix) amitriptyline 25 mg tablet 25 mg PO BEDTIME 07/10/22 07/10/22 venlafaxine 50 mg tablet 50 mg PO DAILY 07/10/22 07/10/22 Previous Rx's Medication Instructions Recorded cyclobenzaprine 10 mg tablet 10 mg PO TID PRN muscle spasm #20 05/07/22 tabs tramadol 50 mg tablet 50 mg PO Q6H PRN pain #10 tabs 09/09/22 Allergies Allergy/AdvReac Type Severity Reaction Status Date / Time No Known Drug Allergies Allergy Verified 09/09/22 08:03 Review of Systems Review of Systems ROS Unobtainable: All systems reviewed & are unremarkable except as noted in HPI and below Patient History Medical History Anemia affecting GERD (gastroesophageal reflux disease) (~2015) No significant past medical history Surgical History No pertinent past surgical history [place] teeth extracted Family History Mother Chain smoker Father Family estrangement Grandmother Lung cancer Smoker Grandfather Smoker COPD (chronic obstructive pulmonary disease) Grandmother Diabetes mellitus Grandfather Diabetes mellitus Sister Asthma Social History marital status: unmarried,living together (Lives w/ FOB. ) number of children: 2 household members: significant other and children (Boyfriend's children, age 6 & 9. ) lives independently: Yes caregiver/support person: No housing: house pets and animals: Yes (1 Cat; aware. ) education level: college (Working on Bachelor's in [employer]) occupational status: employed (Works on [employer], now has desk job r/t . ) current occupational exposures/hazards: No special lilly needs: No seatbelt use: always working smoke detector in home: Yes carbon monox detector in home: Yes firearms in home: Yes firearms unloaded and locked: Yes do you feel safe at home: Yes Smoking Status: Current every day smoker Tobacco: How many years used: 5 quit status: has quit before second hand exposure: No alcohol intake: former (Pre-: rarely, but situational. ) substance use type: does not use during the past year weight has: remained stable well-balanced diet: daily or most days daily servings fruits/ve-4 caffeine: No (Quit w . ) Type(s) of exercise: weight lifting (Pre-: weighted lifts / squats, gym daily. ) and normal ROM and activity frequency: daily Smoking Status: Current every day smoker tobacco type: vaping alcohol intake frequency: 0-2 drinks per day Alcohol type: beer, wine and hard liquor Substance Use Type: does not use Exam Narrative Exam Narrative: GENERAL: Alert and oriented x three, well-nourished female in mild distress HEENT: Head normocephalic, atraumatic, EOMI, pupils reactive, face symmetric, moist mucous membranes NECK: Supple, full range of motion CARDIOVASCULAR: Regular rate and rhythm without murmurs, rubs or gallops. RESPIRATORY: Breath sounds equal bilaterally, no wheezes rales or rhonchi. ABDOMEN: Soft, mild generalized tenderness.. Normoactive bowel sounds all 4 quadrants. No guarding or rebound, rigidity, no mass, no bruit or pulsatile mass. : No CVA tenderness EXTREMITIES: Normal range of motion, no clubbing or edema. Neurovascularly intact NEUROLOGICAL: Cranial nerves II through XII grossly intact. Moving all extremities SKIN: Warm, dry, no petechiae, no rashes or lesions. Initial Vital Signs Initial Vital Signs: Vital Signs Temperature 98.1 F 09/09/22 08:00 Pulse Rate 79 09/09/22 08:00 Respiratory Rate 16 09/09/22 08:00 Blood Pressure 112/74 09/09/22 08:00 Pulse Oximetry 99 09/09/22 08:00 Oxygen Delivery Method 09/09/22 08:00 Course Orders Ordered: Discontinued Medications Ketorolac Tromethamine (Ketorolac 30 Mg/Ml Vial) 15 mg IV NOW ONE Stop: 09/09/22 11:06 Last Admin: 09/09/22 11:20 Dose: 15 mg Documented By: RATNA Ondansetron HCl (Ondansetron 4 Mg/2 Ml Inj) 4 mg IV NOW ONE Stop: 09/09/22 08:05 Last Admin: 09/09/22 08:45 Dose: 4 mg Documented By: ALETA Vital Signs Vital signs: Vital Signs - 8 hr 09/09/22 08:00 09/09/22 08:24 09/09/22 08:24 Temperature 98.1 F Pulse Rate 79 73 Respiratory Rate 16 Blood Pressure 112/74 106/66 Pulse Oximetry 99 97 Oxygen Delivery Method Room Air 09/09/22 08:30 09/09/22 08:30 09/09/22 09:00 Temperature Pulse Rate 77 Respiratory Rate 26 H Blood Pressure 108/73 99/73 Pulse Oximetry 98 Oxygen Delivery Method 09/09/22 09:00 09/09/22 09:30 09/09/22 09:30 Temperature Pulse Rate 72 68 Respiratory Rate 21 19 Blood Pressure 106/66 Pulse Oximetry 98 100 Oxygen Delivery Method 09/09/22 10:03 09/09/22 10:03 09/09/22 10:30 Temperature Pulse Rate 69 Respiratory Rate 15 Blood Pressure 102/69 102/80 Pulse Oximetry 91 Oxygen Delivery Method 09/09/22 10:30 09/09/22 11:00 09/09/22 11:01 Temperature Pulse Rate 68 73 Respiratory Rate 16 Blood Pressure 101/78 Pulse Oximetry 98 100 Oxygen Delivery Method 09/09/22 11:01 Temperature Pulse Rate 71 Respiratory Rate 23 Blood Pressure Pulse Oximetry 99 Oxygen Delivery Method MDM - Abdominal Pain Lab Data Result diagrams: 09/09/22 08:20 09/09/22 08:20 Labs: Lab Results 09/09/22 09/09/22 09/09/22 Range/Units 08:20 08:20 08:48 WBC 5.6 (4.5-11.0) X10^3/uL RBC 4.06 (4.0-5.2) X10^6/uL Hgb 12.1 (12.0-16.0) g/dL Hct 35.3 L (36-46) % MCV 87.1 (80-100) fL MCH 29.9 (26-34) PG MCHC 34.4 (30-36) % RDW 12.8 (11.6-14.8) % Plt Count 351 (150-400) X10^3/uL Neut % (Auto) 46.5 L (50-75) % Lymph % (Auto) 43.8 H (25-40) % [place] % (Auto) 7.7 (3-14) % Eos % (Auto) 1.3 L (2-4) % Baso % (Auto) 0.7 (0-2) % Neut # (Auto) 2600 (8939-0672) /uL Lymph # (Auto) 2400 (8344-5896) /uL [place] # (Auto) 400 (0-900) /uL Eos # (Auto) 100 (0-450) /uL Baso # (Auto) 0 (0-100) /uL Sodium 139 (137-145) mmol/L Potassium 3.9 (3.4-5.1) mmol/L Chloride 106 (98-107) mmol/L Carbon Dioxide 22 (22-32) mmol/L BUN 10 (7-17) mg/dL Creatinine 0.72 (0.52-1.04) mg/dL Estimated GFR > 60 (>60) mL/min BUN/Creatinine Ratio 13.9 (6-22) Glucose 100 (70-100) mg/dL Calcium 8.7 (8.4-10.2) mg/dL Total Bilirubin 0.2 (0.2-1.3) mg/dL AST 15 (14-36) IU/L ALT 14 (<35) IU/L Alkaline Phosphatase 82 (38-126) U/L Total Protein 7.5 (6.3-8.2) g/dL Albumin 4.3 (3.5-5.0) g/dL Globulin 3.2 (1.7-4.1) g/dL Albumin/Globulin Ratio 1.3 (1.0-2.8) Lipase 61 (23-300) U/L SARS-CoV-2 (PCR) Negative (Negative) Influenza A (RT-PCR) Flu a negative (NEGATIVE) Influenza B (RT-PCR) Flu b negative (NEGATIVE) RSV (PCR) Negative (Negative) Point of care testing: Point of Care Testing Test Results Negative Urine Dip Bedside Urine Glucose Negative Bedside Urine Bilirubin - Negative Bedside Urine Ketone - Negative Urine Specific [place] 1.010 Bedside Urine Occult Blood ++ Bedside Urine pH 6.5 Bedside Urine Protein - Negative Bedside Urine Urobilinogen - Negative Bedside Urine Nitrite - Negative Bedside Urine Leukocytes - Negative Esterase Imaging Data CT scan - abdomen/pelvis: Radiologist's Impression: Jacinta Canales??27??F??1995 ? Allergy/Adv: No Known Drug Allergies (More??) Close Abdomen/Pelvis CT (Signed) ManishCorea - 09/09/22 Abdomen/Pelvis CT (Signed) Karen Brito - 08/02/22 Abdomen Ultrasound (Signed) Massimo Covarrubias - 07/23/22 Ultrasound (Signed) Leo White - 03/26/21 Chest X-Ray (Signed) Yasmin Lazar - 12/31/19 Chest X-Ray (Signed) Jorgito Smith - 08/29/19 Launch?[address] [address] [address] Scan Report Signed Patient: Jacinta Canales MR#: [id number] : 1995 Acct:[id number] Age/Sex: 27 / F Date of Service: 09/09/22 Loc: ED Accession Number: [id number] ?? Procedure: CT abdomen pelvis w con Ordering Provider: Sandra Pressley D.O. PROCEDURE:? CT ABDOMEN PELVIS W CON ? INDICATIONS:? abd pain, acute on chronic, left sided more ? TECHNIQUE:? After the administration of intravenous contrast, axial sections acquired from the lung bases to the pubic symphysis.? Coronal and sagittal reformats were performed.? For radiation dose reduction, the following was used:? automated exposure control, adjustment of mA and/or kV according to patient size.? ? COMPARISON:? [facility], CT, CT ABDOMEN PELVIS W CON, 08/02/2022, 12:10. ? FINDINGS:? Image quality:? Excellent.? ? Lung bases:? Unremarkable. Heart:? No significant findings. ? ABDOMEN: Liver:? Unremarkable.? ? Gallbladder:? Unremarkable.? ? Biliary ducts:? Unremarkable.? ? Pancreas:? Unremarkable.? ? Spleen:? Unremarkable.? ? Adrenal Glands:? Unremarkable.? ? Kidneys and Ureters:? Unremarkable.? ? ? Stomach and Bowel:? Stomach, small bowel loops, and colon are unremarkable.? Peritoneum:? No abnormal intraperitoneal fluid.? No free air.? ? Ventral Wall: ? No hernias.? Abdominal Nodes:? No retroperitoneal or mesenteric adenopathy by size criteria.? Vessels:? Aorta and inferior vena cava are normal in size.? ? PELVIS: Pelvic Organs:? Again noted is an.? ? Bladder:? Unremarkable.? ? Pelvic Nodes: No enlarged lymph nodes.? Miscellaneous: No hernias are seen. ? ? ? Bones:? Unremarkable.? IMPRESSION: ? 1. No significant change in size or appearance of right adnexal cyst. ? 2. No acute findings.? No findings which explain the patient's left-sided pain.? ? ? Dictated by: Virgilio Hammond M.D. on 09/09/2022 at 12:25 ? ? Approved by: Virgilio Hammond M.D. on 09/09/2022 at 12:30?? ECG Data Attestation: I personally reviewed and interpreted this ECG as follows: Prior ECG tracings: not available for review Interpretation: Sinus rhythm rate of 71, AR 156 QRS is 78 QTC of 434. No acute ST changes, nonspecific change. MDM Narrative Medical decision making narrative: This is a 27-year-old female with overall reassuring exam, body aches abdominal pain discomfort. Patient initially stated had not had this issue but then notes that she is chronically had abdominal pain. She has generalized tenderness but nothing specific and does not have an acute abdomen. Labs are overall reassuring urine does not show clear infection. EKG has nonspecific change. Patient CT abdomen pelvis ordered no acute change. Patient has follow-up abdominal MRI as an outpatient. Feel this is appropriate, no clear cause or emergent cause found for her pain today but patient appears safe for discharge home. Discharge Plan Departure Patient Disposition: Home Clinical Impression: Abdominal pain Instructions: DI for Abdominal Pain-Adult Activity Restrictions/Additional Instructions: Your labs, imaging today do not show significant change. You can take medication as prescribed. You may take Tylenol 1000 mg every 6 hours as needed. Needed you can take tramadol 1-2 tablets every 6 hours as needed. This medication can make you sleepy do not drive, perform hazardous activities or make any major decisions while taking it. This medication will make you constipated please take a stool softener once to twice daily until stools are soft and regular. Prescription sent to [facility] pharmacy Please return for fevers rapidly worsening symptoms, persistent vomiting, black or bloody stools or other new or concerning changes. Prescriptions: New tramadol 50 mg tablet 50 mg PO Q6H PRN (Reason: pain) Qty: 10 0RF No Action pantoprazole [Protonix] 40 mg tablet,delayed release (DR/EC) 40 mg PO DAILY venlafaxine 50 mg tablet 50 mg PO DAILY amitriptyline 25 mg tablet 25 mg PO BEDTIME cyclobenzaprine 10 mg tablet 10 mg PO TID PRN (Reason: muscle spasm) Qty: 20 0RF Referrals: Jacques Tamayo [Primary Care Provider] - Visit Report Forms: Patient Portal/API
--- NOTE | 2022-09-09 11:05 | DI.CT.S_ITS ---
PROCEDURE: CT ABDOMEN PELVIS W CON INDICATIONS: abd pain, acute on chronic, left sided more TECHNIQUE: After the administration of intravenous contrast, axial sections acquired from the lung bases to the pubic symphysis. Coronal and sagittal reformats were performed. For radiation dose reduction, the following was used: automated exposure control, adjustment of mA and/or kV according to patient size. COMPARISON: [facility], CT, CT ABDOMEN PELVIS W CON, 08/02/2022, 12:10. FINDINGS: Image quality: Excellent. Lung bases: Unremarkable. Heart: No significant findings. ABDOMEN: Liver: Unremarkable. Gallbladder: Unremarkable. Biliary ducts: Unremarkable. Pancreas: Unremarkable. Spleen: Unremarkable. Adrenal Glands: Unremarkable. Kidneys and Ureters: Unremarkable. Stomach and Bowel: Stomach, small bowel loops, and colon are unremarkable. Peritoneum: No abnormal intraperitoneal fluid. No free air. Ventral Wall: No hernias. Abdominal Nodes: No retroperitoneal or mesenteric adenopathy by size criteria. Vessels: Aorta and inferior vena cava are normal in size. PELVIS: Pelvic Organs: Again noted is an. Bladder: Unremarkable. Pelvic Nodes: No enlarged lymph nodes. Miscellaneous: No hernias are seen. Bones: Unremarkable. IMPRESSION: 1. No significant change in size or appearance of right adnexal cyst. 2. No acute findings. No findings which explain the patient's left-sided pain. Dictated by: Virgilio Hammond M.D. on 09/09/2022 at 12:25 Approved by: Virgilio Hammond M.D. on 09/09/2022 at 12:30
[2022-09-09] MEDS: KETOROLAC 30 MG/ML VIAL 15 MG IV (11:20)
--- NOTE | 2022-09-09 11:38 | PC.NURSE ---
checked in on pt. resting in bed. and daughter at bedside. given torodol for pain. awaiting CT abd. 22G RHand sluggish. New 20G LAC placed for contrast study. VS taken. NAD
== END 2022-09-09 13:00 | disposition home or self-care (01) ==
PROVIDERS: Emergency Provider Emergency Medicine; PCP Student in an Organized Health Care Education/Training Program
DX: R10.9 Unspecified abdominal pain (principal); R07.9 Chest pain, unspecified; Z20.822 Contact with and (suspected) exposure to COVID-19
CPT/HCPCS: 0241U; 36415; 74177; 80053; 81003; 81025; 83690; 85025; 93005; 96374; 96375; 99284; J1885; J2405; Q9967

== ENCOUNTER → 2022-10-01 15:00 | Outpatient (CLI) | payer OTHER, SELFPAY ==
--- NOTE | 2022-10-01 | DI.US.S_ITS ---
PROCEDURE: US PELVIC COMPLETE INDICATIONS: Unspecified ovarian cyst, unspecified side TECHNIQUE: Real-time scanning was performed of the pelvic organs, with image documentation. Additional endovaginal scanning was necessary due to incomplete visualization of the adnexal and endometrial structures by transabdominal scanning. COMPARISON: None. FINDINGS: Uterus: Uterus is anteverted and normal in size at 7.7 x 4.1 x 3.8 cm. The myometrium is homogeneous. The endometrium measures 8.7 mm combined thickness. Ovaries: The right ovary measures 4.1 x 2.9 x 2.3 cm, with a calculated ovarian volume of 14.2 cc. The left ovary measures 3.4 x 2.9 x 1.7 cm, with a calculated ovarian volume of 8.7 cc. The ovaries have a normal sonographic appearance. Less than 12 follicles can be seen in each ovary. No adnexal masses are seen. Simple cyst in the right ovary measures 3.4 x 2.3 x 1.9 Other: No pathologic free abdominal or pelvic fluid. IMPRESSION: Simple appearing right ovarian cyst, 3.4 cm Approved by: Anam Paz M.D. on 10/01/2022 at 19:26
== END ==
PROVIDERS: PCP Student in an Organized Health Care Education/Training Program
DX: N83.291 Other ovarian cyst, right side (principal)
CPT/HCPCS: 76830; 76856

== ENCOUNTER 2024-01-19 08:47 | Day surgery (SDC) | payer OTHER, SELFPAY ==
--- NOTE | 2024-01-19 | PATH_ITS ---
[facility] Accession Number: [id number] No. of containers..01 Tissue . 01 Material submitted: . colon - RANDOM COLON . 01 Diagnosis: Colon, random, biopsies: Benign colonic mucosa, negative for microscopic colitis. Negative for active or chronic colitis. TXN 01/23/2024 1142 Local . 01 Electronically signed: . Gwyn Rothman MD, Pathologist NPI- [id number] . 01 Gross description: . RANDOM COLON: Received in formalin is 1 fragment(s) of champion, soft tissue measuring 0.3 x 0.3 x 0.2 cm submitted entirely in 1 cassette(s) /KAYY 01/20/2024 2231 Local . 01 Pathologist provided ICD-10: Z12.11 . 01 CPT . 438978 Specimen Comment: A courtesy copy of this report has been sent to [phone] Performed at: 01 [facility] [address] [place] [address], [place], [place] [id number] MD Jose Gonzales MD Phone: [phone]
[2024-01-19 09:07] VITALS: BP 104/70; PULSE 75; RESP 16; TEMP 36.4; O2SAT 95
[2024-01-19] MEDS: LACTATED RINGERS 1,000 ML 42 ML IV (09:14)
--- NOTE | 2024-01-19 09:34 | PM.HP.1 ---
History of Present Illness History of Present Illness Date Patient Seen: 01/19/24 Time Patient Seen: 09:34 Chief complaint: Colonoscopy Narrative: 28-year-old female here for colonoscopy. She reports a family history of colon cancer in her mom. She has had at least 3 years of fluctuating diarrhea with constipation. Rare red blood per rectum. She has associated abdominal pain. She was recently seen in clinic by Mete Boudreaux. Colonoscopy was recommended. [facility] Medical History Anemia affecting GERD (gastroesophageal reflux disease) (~2016) No significant past medical history Surgical History [place] teeth extracted No pertinent past surgical history Family History Mother Chain smoker Father Family estrangement Grandmother Lung cancer Smoker Grandfather Smoker COPD (chronic obstructive pulmonary disease) Grandmother Diabetes mellitus Grandfather Diabetes mellitus Sister infant Asthma Social History marital status: unmarried,living together (Lives w/ FOB. ) number of children: 2 household members: significant other and children (Boyfriend's children, age 6 & 9. ) lives independently: Yes caregiver/support person: No housing: house pets and animals: Yes (1 Cat; aware. ) education level: college (Working on Bachelor's in [employer].) occupational status: employed (Works on [employer], now has desk job r/t . ) current occupational exposures/hazards: No special lilly needs: No seatbelt use: always working smoke detector in home: Yes carbon monox detector in home: Yes firearms in home: Yes firearms unloaded and locked: Yes do you feel safe at home: Yes Smoking Status: Current every day smoker Tobacco: How many years used: 5 quit status: has quit before second hand exposure: No alcohol intake: former substance use type: does not use during the past year weight has: remained stable well-balanced diet: daily or most days daily servings fruits/ve-4 caffeine: No (Quit w . ) Type(s) of exercise: weight lifting (Pre-: weighted lifts / squats, gym daily. ) and normal ROM and activity frequency: daily Meds Home Medications and Allergies Home Medications Medication Instructions Recorded Confirmed Type pantoprazole 40 mg tablet,delayed 40 mg PO DAILY 05/31/21 01/19/24 History release (Protonix) amitriptyline 25 mg tablet 25 mg PO BEDTIME 07/10/22 01/19/24 History venlafaxine 50 mg tablet 50 mg PO DAILY 07/10/22 01/19/24 History aripiprazole 5 mg tablet 5 mg PO DAILY 01/19/24 01/19/24 History Allergies Allergy/AdvReac Type Severity Reaction Status Date / Time No Known Drug Allergies Allergy Verified 01/19/24 08:58 Review of Systems Review of Systems ROS: Yes All systems reviewed with the patient and are negative except as otherwise documented Exam Vital Signs (past 8 hours): - 01/19/24 09:07 Temperature 97.5 F L Pulse Rate 75 Respiratory Rate 16 Blood Pressure 104/70 Pulse Oximetry 95 Oxygen Delivery Method Room Air Oxygen Delivery Method Room Air Const General: cooperative HENMT Head: normal to inspection Eyes General: appearance normal, both eyes and all related structures Neck Neck: normal visual inspection Chest Chest: normal inspection of the chest Resp Effort & Inspection: normal respiratory effort Cardio Rate: regular rate GI Inspection: normal to inspection Skin General: no rashes or lesions noted Neuro General: patient alert and patient awake Extrem General: normal to inspection and no pedal edema Psych Appearance: grossly normal Assessment & Plan Assessment & Plan narrative: This is a 28-year-old female with abdominal pain, diarrhea, constipation, intermittent rectal bleeding, and a family history of colon cancer. Colonoscopy is pursued today.
--- NOTE | 2024-01-19 09:35 | PM.PREOP ---
Pre-operative Note Interval Note History & Physical reviewed/Exam performed by Physician: Yes Changes to H&P: No ASA Class (for procedural sedation): II
--- NOTE | 2024-01-19 10:04 | PM.OP.COLON ---
Operative Date/Time/Diagnoses Date of procedure: 01/19/24 Time of procedure: 10:04 Pre-op diagnosis: Abdominal pain, constipation, diarrhea, intermittent rectal bleeding, and a family history of colon cancer. Post-op diagnosis: same Procedure & Clinicians Study performed: Colonoscopy with random biopsies Same procedure as scheduled: Yes Indications: Abdominal pain, constipation, diarrhea, intermittent rectal bleeding, and a family history of colon cancer. Surgeon: [place] Procedure Notes SCOAP/Timeout: Done Procedure in detail: After the risks and benefits were explained, written and verbal informed consent was obtained. The patient was brought into the procedure room and placed into the left lateral decubitus position. Please see anesthesia notes for sedation details. Digital rectal examination was accomplished. The scope was introduced into the patient and advanced under direct visualization to the cecum as identified by the appendiceal orifice and ileocecal valve. The scope was slowly withdrawn to carefully examine the mucosa for any defects or lesions. Comprehensive imaging was accomplished throughout the rectum including the dentate line. The colon was decompressed, the scope was then removed from the patient who tolerated the procedure well. Pediatric colonoscope Bowel prep adequate Scope withdrawal time: 11 minutes Sedation minutes: 16 Complications: none Impression: There was no evidence of any proctitis. No suggestion of colitis throughout. Random colon biopsies were taken for exclusion of microscopic inflammation. The terminal ileum was interrogated and appeared visually normal. The patient had minimal grade 1 internal hemorrhoids. Otherwise the exam was normal. Endoscopic diagnosis 1. Minimal internal hemorrhoids grade 1 2. Otherwise visually normal exam Post-procedure Plan for aftercare: 1. Await histology. 2. Repeat colonoscopy 5 years considering family history. 3. Titrate [id number] fiber supplementation to the desired stool consistency and frequency. Disposition: PACU
[2024-01-19 10:11] VITALS: BP 87/55; PULSE 74; RESP 14; TEMP 36.9; O2SAT 99
[2024-01-19 10:16] VITALS: BP 90/56; PULSE 77; RESP 17; O2SAT 98
[2024-01-19 10:20] VITALS: BP 92/57; PULSE 74; RESP 15; O2SAT 98
[2024-01-19 10:42] VITALS: BP 90/61; PULSE 68; RESP 14; TEMP 36.9; O2SAT 98
== END 2024-01-19 10:45 | disposition home or self-care (01) ==
PROVIDERS: PCP Student in an Organized Health Care Education/Training Program; Referring Provider Internal Medicine Gastroenterology; Visit Provider Internal Medicine Gastroenterology
PROC: 0DJD8ZZ Inspection of Lower Intestinal Tract, Via Natural or Artificial Opening Endoscopic (ICD-10-PCS; CPT 45378; principal; 2024-01-19 09:30)
DX: R10.9 Unspecified abdominal pain (principal); K62.5 Hemorrhage of anus and rectum; K59.00 Constipation, unspecified; R19.7 Diarrhea, unspecified; Z80.0 Family history of malignant neoplasm of digestive organs; K64.0 First degree hemorrhoids
CPT/HCPCS: 45380; J2704

== ENCOUNTER 2024-04-05 19:57 | Emergency (ER) | payer OTHER, SELFPAY ==
[2024-04-05 20:07] VITALS: BP 104/67; PULSE 76; RESP 16; TEMP 36.7; O2SAT 99; BMI 30.9
[2024-04-05 22:10] VITALS: BP 113/58
[2024-04-05 22:11] VITALS: PULSE 75; O2SAT 98
[2024-04-05 22:30] VITALS: BP 110/62; PULSE 75; O2SAT 100
[2024-04-06] MEDS: SODIUM CHLORIDE 0.9% 1,000 ML 1000 ML IV (00:20)
[2024-04-06] MEDS: PROCHLORPERAZINE 10 MG/2 ML VIAL IV (00:26)
[2024-04-06] MEDS: DEXAMETHASONE 10 MG/ML VIAL IV (00:28)
[2024-04-06] MEDS: KETOROLAC 30 MG/ML VIAL 15 MG IV (00:29)
[2024-04-06] MEDS: diphenhydrAMINE 50 MG/ML VIAL 25 MG IV (00:31)
--- NOTE | 2024-04-06 01:20 | ED.HA ---
HPI - Headache General Chief Complaint: Headache Stated Complaint: Migraine, lower back and abd pain Time Seen by Provider: 04/05/24 23:52 Mode of arrival: Ambulatory History of Present Illness HPI Narrative: 28-year-old woman with a history of migraine for which she is on prophylaxis and takes rizatriptan as needed also complains of back pain and abdominal pain. In looking through notes including GI and OBGYN consultations regarding abdominal pain over the last 2 years colonoscopy and upper endoscopy been unremarkable. She describes pain is sometimes so severe in the left side of her body goes numb. I am wondering if this is a complex migraine type picture causing her abdominal pain. She describes no vomiting she has had nausea associated with her migraine. Diffuse abdominal pain similar to what she is experienced over the past number of years, no diarrhea. No dysuria, no chest pain or palpitations. Related Data Home Medications Medication Instructions Recorded Confirmed pantoprazole 40 mg tablet,delayed 40 mg PO DAILY 05/31/21 01/19/24 release (Protonix) amitriptyline 25 mg tablet 25 mg PO BEDTIME 07/10/22 01/19/24 venlafaxine 50 mg tablet 50 mg PO DAILY 07/10/22 01/19/24 aripiprazole 5 mg tablet 5 mg PO DAILY 01/19/24 01/19/24 Allergies Allergy/AdvReac Type Severity Reaction Status Date / Time No Known Drug Allergies Allergy Verified 04/05/24 20:07 Review of Systems Review of Systems Narrative: Pertinent positive and negative findings as per HPI Patient History Medical History (Updated 04/06/24 @ 01:29 by Nella White MD) Migraine Anemia affecting GERD (gastroesophageal reflux disease) (~2015) No significant past medical history Surgical History [place] teeth extracted No pertinent past surgical history Family History Mother Chain smoker Father Family estrangement Grandmother Lung cancer Smoker Grandfather Smoker COPD (chronic obstructive pulmonary disease) Grandmother Diabetes mellitus Grandfather Diabetes mellitus Sister Asthma Social History marital status: unmarried,living together (Lives w/ FOB. ) number of children: 2 household members: significant other and children (Boyfriend's children, age 6 & 9. ) lives independently: Yes caregiver/support person: No housing: house pets and animals: Yes (1 Cat; aware. ) education level: college (Working on Bachelor's in Aviation Mechanics.) occupational status: employed (Works [employer], now has desk job r/t . ) current occupational exposures/hazards: No special lilly needs: No seatbelt use: always working smoke detector in home: Yes carbon monox detector in home: Yes firearms in home: Yes firearms unloaded and locked: Yes do you feel safe at home: Yes Smoking Status: Current every day smoker Tobacco: How many years used: 5 quit status: has quit before second hand exposure: No alcohol intake: former substance use type: does not use during the past year weight has: remained stable well-balanced diet: daily or most days daily servings fruits/ve-4 caffeine: No (Quit w . ) Type(s) of exercise: weight lifting (Pre-: weighted lifts / squats, gym daily. ) and normal ROM and activity frequency: daily Smoking Status: Current every day smoker tobacco type: vaping alcohol intake frequency: 0-2 drinks per day Alcohol type: beer, wine and hard liquor Substance Use Type: does not use Exam Initial Vital Signs Initial Vital Signs: Vital Signs Temperature 98.1 F 04/05/24 20:07 Pulse Rate 76 04/05/24 20:07 Respiratory Rate 16 04/05/24 20:07 Blood Pressure 104/67 04/05/24 20:07 Pulse Oximetry 99 04/05/24 20:07 Oxygen Delivery Method Room Air 04/05/24 20:07 General: Healthy appearing, in no acute distress. Able to give a complete and coherent history. Well-nourished well-developed HEENT: Moist mucous membranes, normal sclera with reactive pupils, Respiratory: Lungs are clear to auscultation, no wheezing no rales no rhonchi. Full and symmetrical air movement Cardiac: Regular rate and rhythm no murmurs no bruits Abdomen: Soft, nontender, good bowel tones, no flank pain Skin: Warm and dry, no rashes Neurologic: Grossly neurologically intact with no obvious asymmetries or abnormalities Extremities: No trauma, well perfused Psych: Cooperative, appropriate insight and affect Course Orders Ordered: Discontinued Medications Dexamethasone (Dexamethasone 10 Mg/Ml Vial) 10 mg IV NOW ONE Stop: 04/05/24 23:55 Last Admin: 04/06/24 00:28 Dose: 10 mg Documented By: BEN Diphenhydramine HCl (Diphenhydramine 50 Mg/Ml Vial) 25 mg IV NOW ONE Stop: 04/05/24 23:55 Last Admin: 04/06/24 00:31 Dose: 25 mg Documented By: BEN Sodium Chloride (Normal Saline 0.9%) 1,000 mls @ 1,000 mls/hr IV BOLUS ONE Stop: 04/06/24 00:53 Last Admin: 04/06/24 00:20 Dose: 1,000 mls/hr Documented By: BEN Ketorolac Tromethamine (Ketorolac 30 Mg/Ml Vial) 15 mg IV NOW ONE Stop: 04/05/24 23:55 Last Admin: 04/06/24 00:29 Dose: 15 mg Documented By: BEN Prochlorperazine (Prochlorperazine 10 Mg/2 Ml Vial) 10 mg IV NOW ONE Stop: 04/05/24 23:55 Last Admin: 04/06/24 00:26 Dose: 10 mg Documented By: BEN Vital Signs Vital signs: Vital Signs - 8 hr 04/05/24 20:07 04/05/24 22:10 04/05/24 22:11 Temperature 98.1 F Pulse Rate 76 75 Respiratory Rate 16 Blood Pressure 104/67 113/58 L Pulse Oximetry 99 98 Oxygen Delivery Method Room Air 04/05/24 22:30 04/05/24 22:30 Temperature Pulse Rate 75 Respiratory Rate Blood Pressure 110/62 Pulse Oximetry 100 Oxygen Delivery Method MDM - Headache MDM Narrative Medical decision making narrative: CC: Patient presents with complaints of her typical migraine headache for the last 2 days Complicating co-morbidities: Depression, reflux, chronic abdominal pain Data collected from: patient Medical records reviewed: Recent ER, GI and OBGYN notes all regarding headache and abdominal pain are reviewed Differential considered: Migraine, complex migraine, medication side effect, upper respiratory infection Exam documented above, pertinent findings include: Patient has some mild photophobia neurologic exam is benign Treatments: Parenteral fluids, Toradol, dexamethasone, Compazine, Benadryl Discussion: Patient's headache, back pain and abdominal pain have resolved with her headache treatment. At this point there is no evidence of surgical abdomen, acute infection indication for additional imaging, workup or hospitalization. Encouraged her to discuss the possibility of complex migraine is the source for her chronic abdominal pain. At this point she appears to be on all appropriate prophylactic medications, is currently pain-free and is safe for discharge Discharge Plan Departure Patient Disposition: Home Clinical Impression: Migraine Qualifiers: Migraine type: unspecified Status migrainosus presence: without status migrainosus Intractability: not intractable Qualified Code(s): G43.909 - Migraine, unspecified, not intractable, without status migrainosus Instructions: DI for Migraine Activity Restrictions/Additional Instructions: Thank you for coming in today You were given our usual migraine combination which includes fluid, Toradol, Compazine, Benadryl and 10 mg of dexamethasone, a steroid to help reduce inflammation and hopefully prevent the migraine from coming back after you have a good night sleep I am glad to hear that the headache is significantly improved. I hope you are able to get some good sleep. I have given you a note to stay home from work on Friday the . If you find that you are getting worse or develop any new symptoms, please feel free to return to the emergency department for further evaluation. Prescriptions: No Action pantoprazole [Protonix] 40 mg tablet,delayed release (DR/EC) 40 mg PO DAILY venlafaxine 50 mg tablet 50 mg PO DAILY amitriptyline 25 mg tablet 25 mg PO BEDTIME aripiprazole 5 mg tablet 5 mg PO DAILY Referrals: Jacques Tamayo [Primary Care Provider] - Stand Alone Forms: Patient Portal/API, Work Release Note
[2024-04-06 02:05] VITALS: BP 108/60; PULSE 73; RESP 18; O2SAT 96
== END 2024-04-06 02:06 | disposition home or self-care (01) ==
PROVIDERS: Emergency Provider Emergency Medicine; PCP Student in an Organized Health Care Education/Training Program
DX: G43.909 Migraine, unspecified, not intractable, without status migrainosus (principal); R10.9 Unspecified abdominal pain; M54.9 Dorsalgia, unspecified
CPT/HCPCS: 96374; 96375; 99283; J0780; J1100; J1200; J1885

== ENCOUNTER 2024-11-16 12:27 | Emergency (ER) | payer OTHER, SELFPAY ==
[2024-11-16 12:29] VITALS: BP 122/66; PULSE 84; RESP 16; TEMP 36.9; O2SAT 98; BMI 32.5
[2024-11-16 13:07] LABS: Add Manual Diff / Slide Review NO; Basophils Absolute Auto 100 /uL (0-100); Basophils Percent Auto 0.9 % (0-2); Eosinophils Absolute Auto 0 /uL (0-450); Eosinophils Percent Auto 0.7 % (2-4); Hematocrit 35.7 % (36-46); Hemoglobin 11.7 g/dL (12.0-16.0); Lymphocytes Absolute Auto 2900 /uL (1100-4500); Lymphocytes Percent Auto 43.1 % (25-40); Mean Corpuscular HGB Conc 32.9 % (30-36); Mean Corpuscular Hemoglobin 27.8 PG (26-34); Mean Corpuscular Volume 84.5 fL (80-100); Monocytes Absolute Auto 400 /uL (0-900); Monocytes Percent Auto 6.5 % (3-14); Neutrophils Absolute Auto 3300 /uL (1500-7000); Neutrophils Percent Auto 48.8 % (50-75); Platelet Count 384 X10^3/uL (150-400); Red Blood Cell Count 4.22 X10^6/uL (4.0-5.2); Red Cell Distribution Width 15.4 % (11.6-14.8); White Blood Cell Count 6.8 X10^3/uL (4.5-11.0)
[2024-11-16 13:21] LABS: Alanine Aminotransferase 21 IU/L (<35); Albumin 4.2 g/dL (3.5-5.0); Albumin Globulin Ratio 1.6 (1.0-2.8); Alkaline Phosphatase 108 U/L (38-126); Aspartate Aminotransferase 29 IU/L (14-36); BUN Creatinine Ratio 11.5 (6-22); Bilirubin Total 0.2 mg/dL (0.2-1.3); Blood Urea Nitrogen 12 mg/dL (7-17); Calcium 8.8 mg/dL (8.4-10.2); Carbon Dioxide 24 mmol/L (22-32); Chloride 106 mmol/L (98-107); Estimated Glomerular Filt Rate > 60 mL/min (>60); Globulin 2.7 g/dL (1.7-4.1); Glucose 82 mg/dL (70-100); HEMOLYSIS 16 (0-50); Lipase 57 U/L (23-300); Potassium 3.9 mmol/L (3.4-5.1); Sodium 137 mmol/L (137-145); Total Protein 6.9 g/dL (6.3-8.2)
[2024-11-16] MEDS: KETOROLAC 30 MG/ML VIAL 15 MG IV (13:24)
--- NOTE | 2024-11-16 13:26 | DI.CT.S_ITS ---
PROCEDURE: CT ABDOMEN PELVIS W CON INDICATIONS: luq, epigastric pain TECHNIQUE: After the administration of intravenous contrast, axial sections acquired from the lung bases to the pubic symphysis. Coronal and sagittal reformats were performed. For radiation dose reduction, the following was used: automated exposure control, adjustment of mA and/or kV according to patient size. COMPARISON: [facility], CT, CT ABDOMEN PELVIS WITH CONTRAST, 11/24/2023, 14:59. [facility], CT, CT ABDOMEN PELVIS W CON, 09/09/2022, 11:44. FINDINGS: Image quality: Diagnostic. Lower Chest: No significant findings. ABDOMEN: Liver: No solid mass. Gallbladder: No radiopaque gallstones or wall thickening. Biliary ducts: No biliary dilation. Pancreas: No ductal dilation. Spleen: Size is within normal limits. Adrenal Glands: No adrenal nodules. Kidneys and Ureters: No hydronephrosis. No solid mass. No complex renal cystic lesion which requires follow up. Stomach and Bowel: Normal colonic caliber, without significant wall thickening. Peritoneum: No abnormal intraperitoneal fluid. No free air. Ventral Wall: No significant ventral hernia. Abdominal Nodes: No retroperitoneal or mesenteric adenopathy by size criteria. Vessels: Aorta and inferior vena cava are normal in size. PELVIS: Pelvic Organs: Normal CT appearance of uterus. 3.3 cm maximum diameter right ovarian cyst. Bladder: No bladder wall thickening, accounting for underdistention. Pelvic Nodes: No enlarged lymph nodes. Miscellaneous: No inguinal hernias are seen. Bones: No aggressive osseous abnormality. IMPRESSION: No acute abdominal process noted. Dictated by: Virgilio Hammond M.D. on 11/16/2024 at 13:43 Approved by: Virgilio Hammond M.D. on 11/16/2024 at 13:49
[2024-11-16 14:48] VITALS: BP 105/56; PULSE 77; RESP 16; O2SAT 99
--- NOTE | 2024-11-29 13:03 | ED_ITS ---
HPI - Abdominal Pain <Nate Carrillo PA-C - Last Filed: 11/29/24 13:09> General Chief Complaint: Abdominal Pain Stated Complaint: Abdominal pain, severe pain after eating Time Seen by Provider: 11/16/24 13:03 Source: patient Mode of arrival: Family Vehicle History of Present Illness HPI narrative: 29-year-old female presents to the ED with 3 days of left upper quadrant pain. Pain is aggravated after eating. No fever, chills, chest pain, shortness of breath, vomiting. Patient does endorse some nausea. Patient has a history of GERD for which she takes Protonix daily. States that her symptoms today are different from GERD symptoms. Related Data Home Medications Medication Instructions Recorded Confirmed pantoprazole 40 mg tablet,delayed 40 mg PO DAILY 05/31/21 01/19/24 release (Protonix) amitriptyline 25 mg tablet 25 mg PO BEDTIME 07/10/22 01/19/24 venlafaxine 50 mg tablet 50 mg PO DAILY 07/10/22 01/19/24 aripiprazole 5 mg tablet 5 mg PO DAILY 01/19/24 01/19/24 Allergies Allergy/AdvReac Type Severity Reaction Status Date / Time No Known Drug Allergies Allergy Verified 04/05/24 20:07 Review of Systems <Nate Carrillo PA-C - Last Filed: 11/29/24 13:09> Constitutional Constitutional: Denies chills, Denies fatigue, Denies fever(s), Denies frequent falls, Denies lethargy and Denies weakness Eyes Eyes: Denies change in vision, Denies eye discharge, Denies irritation and Denies loss of vision ENT Ears, Nose, Mouth, and Throat: Denies change in voice, Denies dizziness, Denies neck pain, Denies sore throat and Denies throat swelling Cardiovascular Cardiovascular: Denies chest pain, Denies irregular heart rhythm, Denies lightheadedness, Denies palpitations, Denies dyspnea, Denies dyspnea on exertion and Denies orthopnea Respiratory Respiratory: Denies cough, Denies dyspnea, Denies dyspnea on exertion and Denies wheezing Gastrointestinal Gastrointestinal: Reports abdominal pain, Denies change in bowel habits, Denies diarrhea, Reports nausea and Denies vomiting Musculoskeletal Musculoskeletal: Denies neck pain and Denies numbness Integumentary/Breasts Skin/Breast: Denies pruritus, Denies erythema, Denies rash and Denies wounds Neurologic Neurologic: Denies behavioral changes, Denies confusion, Denies dizziness, Denies frequent falls, Denies loss of vision, Denies numbness and Denies weakness Psychiatric Psychiatric: Denies anxiety, Denies behavioral changes, Denies confusion, Denies depression, Denies homicidal ideation and Denies suicidal ideation Endocrine Endocrine: Denies fatigue, Denies flushing and Denies palpitations Hematologic/Lymphatic Hematologic/Lymphatic: Denies easy bruising Allergic/Immunologic Allergic/Immunologic: Denies urticaria, Denies throat swelling and Denies wheezing Patient History <Nate Carrillo PA-C - Last Filed: 11/29/24 13:09> Medical History Migraine Anemia affecting GERD (gastroesophageal reflux disease) (~2016) No significant past medical history Surgical History [place] teeth extracted No pertinent past surgical history Family History Mother Chain smoker Father Family estrangement Grandmother Lung cancer Smoker Grandfather Smoker COPD (chronic obstructive pulmonary disease) Grandmother Diabetes mellitus Grandfather Diabetes mellitus Sister Asthma Social History marital status: unmarried,living together (Lives w/ FOB. ) number of children: 2 household members: significant other and children (Boyfriend's children, age 6 & 9. ) lives independently: Yes caregiver/support person: No housing: house pets and animals: Yes (1 Cat; aware. ) education level: college (Working on Bachelor's in [employer].) occupational status: employed (Works on [employer], now has desk job r/t . ) current occupational exposures/hazards: No special lilly needs: No seatbelt use: always working smoke detector in home: Yes carbon monox detector in home: Yes firearms in home: Yes firearms unloaded and locked: Yes do you feel safe at home: Yes Smoking Status: Current every day smoker Tobacco: How many years used: 5 quit status: has quit before second hand exposure: No alcohol intake: former substance use type: does not use during the past year weight has: remained stable well-balanced diet: daily or most days daily servings fruits/ve-4 caffeine: No (Quit w . ) Type(s) of exercise: weight lifting (Pre-: weighted lifts / squats, gym daily. ) and normal ROM and activity frequency: daily Smoking Status: Current every day smoker tobacco type: vaping alcohol intake frequency: 0-2 drinks per day Alcohol type: beer, wine and hard liquor Exam <Nate Carrillo PA-C - Last Filed: 11/29/24 13:09> Narrative Exam Narrative: Const General:?cooperative, healthy appearing and comfortable [facility] Head:?normal to inspection Ears:?hearing grossly normal bilaterally Nose:?external nose normal Face and sinus:?normal facial exam and sinuses nontender Mouth:?oral mucosae normal Throat:?posterior oropharynx normal Eyes General:?appearance normal, both eyes and all related structures Neck Neck:?normal visual inspection and no lymphadenopathy noted Resp Effort & Inspection:?normal respiratory effort Auscultation:?clear to auscultation bilaterally Cardio Rate:?regular rate Rhythm:?regular rhythm GI Abdomen is soft, nondistended. Abdomen is tender to palpation in the epigastric and left upper quadrants. Neuro General:?patient alert, patient awake and patient oriented x3 Initial Vital Signs Initial Vital Signs: Vital Signs Temperature 98.4 F 11/16/24 12:29 Pulse Rate 84 11/16/24 12:29 Respiratory Rate 16 11/16/24 12:29 Blood Pressure 122/66 11/16/24 12:29 Pulse Oximetry 98 11/16/24 12:29 Oxygen Delivery Method Room Air 11/16/24 12:29 <Sandra Pressley DO - Last Filed: 12/01/24 07:14> Initial Vital Signs Initial Vital Signs: Vital Signs Temperature 98.4 F 11/16/24 12:29 Pulse Rate 84 11/16/24 12:29 Respiratory Rate 16 11/16/24 12:29 Blood Pressure 122/66 11/16/24 12:29 Pulse Oximetry 98 11/16/24 12:29 Oxygen Delivery Method Room Air 11/16/24 12:29 Course <TOSHIA Garduno Last Filed: 11/29/24 13:09> Orders Ordered: Discontinued Medications Ketorolac Tromethamine (Ketorolac 30 Mg/Ml Vial) 15 mg IV NOW ONE Stop: 11/16/24 13:19 Last Admin: 11/16/24 13:24 Dose: 15 mg Documented By: CHRIS Ondansetron HCl (Ondansetron 4 Mg/2 Ml Inj) 4 mg IV NOW PRN PRN Reason: Nausea And Vomiting Ondansetron HCl (Ondansetron 4 Mg Odt) 4 mg PO NOW PRN PRN Reason: Nausea And Vomiting <Sandra Pressley DO - Last Filed: 12/01/24 07:14> Orders Ordered: Discontinued Medications Ketorolac Tromethamine (Ketorolac 30 Mg/Ml Vial) 15 mg IV NOW ONE Stop: 11/16/24 13:19 Last Admin: 11/16/24 13:24 Dose: 15 mg Documented By: CHRIS Ondansetron HCl (Ondansetron 4 Mg/2 Ml Inj) 4 mg IV NOW PRN PRN Reason: Nausea And Vomiting Ondansetron HCl (Ondansetron 4 Mg Odt) 4 mg PO NOW PRN PRN Reason: Nausea And Vomiting MDM - Abdominal Pain <Nate Carrillo PA-C - Last Filed: 11/29/24 13:09> Lab Data 11/16/24 12:49 11/16/24 12:49 Labs: Lab Results 11/16/24 Range/Units 12:49 WBC 6.8 (4.5-11.0) X10^3/uL RBC 4.22 (4.0-5.2) X10^6/uL Hgb 11.7 L (12.0-16.0) g/dL Hct 35.7 L (36-46) % MCV 84.5 (80-100) fL MCH 27.8 (26-34) PG MCHC 32.9 (30-36) % RDW 15.4 H (11.6-14.8) % Plt Count 384 (150-400) X10^3/uL Neut % (Auto) 48.8 L (50-75) % Lymph % (Auto) 43.1 H (25-40) % [place] % (Auto) 6.5 (3-14) % Eos % (Auto) 0.7 L (2-4) % Baso % (Auto) 0.9 (0-2) % Neut # (Auto) 3300 (7053-8255) /uL Lymph # (Auto) 2900 (6156-8274) /uL [place] # (Auto) 400 (0-900) /uL Eos # (Auto) 0 (0-450) /uL Baso # (Auto) 100 (0-100) /uL Sodium 137 (137-145) mmol/L Potassium 3.9 (3.4-5.1) mmol/L Chloride 106 (98-107) mmol/L Carbon Dioxide 24 (22-32) mmol/L BUN 12 (7-17) mg/dL Creatinine 1.04 (0.52-1.04) mg/dL Estimated GFR > 60 (>60) mL/min BUN/Creatinine Ratio 11.5 (6-22) Glucose 82 (70-100) mg/dL Calcium 8.8 (8.4-10.2) mg/dL Total Bilirubin 0.2 (0.2-1.3) mg/dL AST 29 (14-36) IU/L ALT 21 (<35) IU/L Alkaline Phosphatase 108 (38-126) U/L Total Protein 6.9 (6.3-8.2) g/dL Albumin 4.2 (3.5-5.0) g/dL Globulin 2.7 (1.7-4.1) g/dL Albumin/Globulin Ratio 1.6 (1.0-2.8) Lipase 57 (23-300) U/L Point of care testing: Point of Care Testing Test Results Negative Urine Dip Bedside Urine Glucose Negative Bedside Urine Bilirubin - Negative Bedside Urine Ketone - Negative Urine Specific [place] 1.020 Bedside Urine Occult Blood - Negative Bedside Urine pH 6.0 Bedside Urine Protein - Negative Bedside Urine Urobilinogen - Negative Bedside Urine Nitrite - Negative Bedside Urine Leukocytes - Negative Esterase MDM Narrative Medical decision making narrative: 29-year-old female presents to the ED with 3 days of left upper quadrant pain. Concern for GERD exacerbation, gastritis, PUD, pancreatitis, other intra- abdominal pathology versus other. Obtained labs, UA, CT abdomen pelvis. Labs, UA unremarkable. Urine hCG is negative. CT scan shows a 3.3 cm maximum diameter right ovarian cyst. No acute abdominal process noted on CT. Patient's symptoms could likely be a GERD exacerbation versus gastritis versus PUD. Recommend patient continue Protonix. May trial Pepcid AC as well. Recommended lifestyle modifications to minimize GERD. Recommend follow-up with PCP, GI. ED return precautions were discussed with patient. Patient verbalized understanding. Medical records reviewed: Yes <Sandrakatie Pressley, - Last Filed: 12/01/24 07:14> Lab Data Labs: Lab Results 11/16/24 Range/Units 12:49 WBC 6.8 (4.5-11.0) X10^3/uL RBC 4.22 (4.0-5.2) X10^6/uL Hgb 11.7 L (12.0-16.0) g/dL Hct 35.7 L (36-46) % MCV 84.5 (80-100) fL MCH 27.8 (26-34) PG MCHC 32.9 (30-36) % RDW 15.4 H (11.6-14.8) % Plt Count 384 (150-400) X10^3/uL Neut % (Auto) 48.8 L (50-75) % Lymph % (Auto) 43.1 H (25-40) % [place] % (Auto) 6.5 (3-14) % Eos % (Auto) 0.7 L (2-4) % Baso % (Auto) 0.9 (0-2) % Neut # (Auto) 3300 (9426-9884) /uL Lymph # (Auto) 2900 (0621-6914) /uL [place] # (Auto) 400 (0-900) /uL Eos # (Auto) 0 (0-450) /uL Baso # (Auto) 100 (0-100) /uL Sodium 137 (137-145) mmol/L Potassium 3.9 (3.4-5.1) mmol/L Chloride 106 (98-107) mmol/L Carbon Dioxide 24 (22-32) mmol/L BUN 12 (7-17) mg/dL Creatinine 1.04 (0.52-1.04) mg/dL Estimated GFR > 60 (>60) mL/min BUN/Creatinine Ratio 11.5 (6-22) Glucose 82 (70-100) mg/dL Calcium 8.8 (8.4-10.2) mg/dL Total Bilirubin 0.2 (0.2-1.3) mg/dL AST 29 (14-36) IU/L ALT 21 (<35) IU/L Alkaline Phosphatase 108 (38-126) U/L Total Protein 6.9 (6.3-8.2) g/dL Albumin 4.2 (3.5-5.0) g/dL Globulin 2.7 (1.7-4.1) g/dL Albumin/Globulin Ratio 1.6 (1.0-2.8) Lipase 57 (23-300) U/L Point of care testing: Point of Care Testing Test Results Negative Urine Dip Bedside Urine Glucose Negative Bedside Urine Bilirubin - Negative Bedside Urine Ketone - Negative Urine Specific [place] 1.020 Bedside Urine Occult Blood - Negative Bedside Urine pH 6.0 Bedside Urine Protein - Negative Bedside Urine Urobilinogen - Negative Bedside Urine Nitrite - Negative Bedside Urine Leukocytes - Negative Esterase Discharge Plan Departure Patient Disposition: Home Clinical Impression: Abdominal pain Instructions: DI for Gastroesophageal Reflux Disease (GERD), GERD Diet Activity Restrictions/Additional Instructions: You were evaluated in the ED today for abdominal pain. Your labs, urine, CT scan were normal. Your symptoms are most likely due to an exacerbation of acid reflux or gastritis. It is possible that the ibuprofen you were taking for the migraines has contributed to your symptoms. Please refrain from taking ibuprofen and take Tylenol instead. If you have to take ibuprofen, please do so with food. You may continue taking your Protonix. You may also add on 20 mg of Pepcid AC 1/2 hour before breakfast and 20 mg prior to dinner. Please follow-up with your PCP for further evaluation. You may need a GI consult and an endoscopy as well. Please follow the appropriate lifestyle medications to improve GERD. These include smaller, more frequent meals, staying upright for at least 3 hours after eating, limiting fatty and spicy foods. Please avoid taking ibuprofen or Aleve on an empty stomach. Caffeine and alcohol can also exacerbate GERD. Return to the ED if you have worsening symptoms. Prescriptions: No Action pantoprazole [Protonix] 40 mg tablet,delayed release (DR/EC) 40 mg PO DAILY venlafaxine 50 mg tablet 50 mg PO DAILY amitriptyline 25 mg tablet 25 mg PO BEDTIME aripiprazole 5 mg tablet 5 mg PO DAILY Referrals: Jacques Tamayo [Primary Care Provider] - Stand Alone Forms: Patient Portal/API/Survey ED Sign-out <Sandra Pressley DO - Last Filed: 12/01/24 07:14> Cosign ED Attending Cosanupamaature Attestation: I was immediately available in the department for consultation.
== END 2024-11-16 14:49 | disposition home or self-care (01) ==
PROVIDERS: Emergency Medicine; Emergency Provider Student in an Organized Health Care Education/Training Program; PCP Student in an Organized Health Care Education/Training Program
DX: R10.12 Left upper quadrant pain (principal); R11.0 Nausea
CPT/HCPCS: 36415; 74177; 80053; 81003; 81025; 83690; 85025; 96374; 99284; J1885; Q9967

== ENCOUNTER 2024-11-25 20:55 | Emergency (ER) | payer OTHER, SELFPAY ==
[2024-11-25 21:11] VITALS: BP 110/69; PULSE 80; RESP 18; TEMP 36.6; O2SAT 99; BMI 31.7
--- NOTE | 2024-11-25 21:17 | DI.RAD.S_ITS ---
PROCEDURE: XR CHEST 1V INDICATIONS: L Rib/shoulder pain, worse with inspiration TECHNIQUE: One view of the chest was acquired. COMPARISON: [facility], CR, XR CHEST 1V, 08/29/2019, 4:58. FINDINGS: Surgical changes and devices: None. Lungs and pleura: Lungs are clear. No pleural effusions or pneumothorax. Mediastinum: Mediastinal contours appear normal. Heart size is normal. Bones and chest wall: No grossly displaced rib fracture. No suspicious bony lesions. Overlying soft tissues appear unremarkable. IMPRESSION: No acute cardiopulmonary abnormality is seen. Approved by: Massimo Baugh M.D. on 11/25/2024 at 21:50
--- NOTE | 2024-11-25 21:24 | EKG_ITS ---
[address] [address] Test Date: 2024-11-25 Pat Name: Jacinta Canales Department: [facility] Room: Gender: Female [employer]ic: : 1995 Requested By: Order Number: [id number] Reading MD: Gregorio Angela Measurements Intervals [place] Rate: 77 P: 63 SC: 158 QRS: 34 QRSD: 72 T: 58 QT: 356 QTc: 402 Interpretive Statements Normal sinus rhythm Low voltage QRS Electronically Signed On 11-26-2024 9:41:54 PST by Gregorio Angela
[2024-11-25 21:49] LABS: Add Manual Diff / Slide Review NO; Basophils Absolute Auto 100 /uL (0-100); Basophils Percent Auto 0.7 % (0-2); Eosinophils Absolute Auto 100 /uL (0-450); Eosinophils Percent Auto 0.7 % (2-4); Hematocrit 36.3 % (36-46); Hemoglobin 12.1 g/dL (12.0-16.0); Lymphocytes Absolute Auto 2900 /uL (1100-4500); Lymphocytes Percent Auto 32.2 % (25-40); Mean Corpuscular HGB Conc 33.4 % (30-36); Mean Corpuscular Hemoglobin 27.9 PG (26-34); Mean Corpuscular Volume 83.5 fL (80-100); Monocytes Absolute Auto 700 /uL (0-900); Monocytes Percent Auto 8.2 % (3-14); Neutrophils Absolute Auto 5300 /uL (1500-7000); Neutrophils Percent Auto 58.2 % (50-75); Platelet Count 363 X10^3/uL (150-400); Red Blood Cell Count 4.34 X10^6/uL (4.0-5.2); Red Cell Distribution Width 15.5 % (11.6-14.8); White Blood Cell Count 9.1 X10^3/uL (4.5-11.0)
[2024-11-25 22:02] LABS: Alanine Aminotransferase 28 IU/L (<35); Albumin 4.5 g/dL (3.5-5.0); Albumin Globulin Ratio 1.5 (1.0-2.8); Alkaline Phosphatase 101 U/L (38-126); Aspartate Aminotransferase 27 IU/L (14-36); BUN Creatinine Ratio 14.5 (6-22); Bilirubin Total 0.3 mg/dL (0.2-1.3); Blood Urea Nitrogen 11 mg/dL (7-17); Calcium 8.9 mg/dL (8.4-10.2); Carbon Dioxide 21 mmol/L (22-32); Chloride 107 mmol/L (98-107); Estimated Glomerular Filt Rate > 60 mL/min (>60); Glucose 112 mg/dL (70-100); HEMOLYSIS < 15 (0-50); Lipase 60 U/L (23-300); Potassium 3.9 mmol/L (3.4-5.1); Sodium 137 mmol/L (137-145); Total Protein 7.5 g/dL (6.3-8.2)
[2024-11-25 22:13] LABS: Troponin I < 0.012 ng/mL (0.01-0.034)
--- NOTE | 2024-11-26 01:40 | DI.CT.S_ITS ---
PROCEDURE: CT ABDOMEN PELVIS W CON INDICATIONS: epigastric pain TECHNIQUE: After the administration of intravenous contrast, axial sections acquired from the lung bases to the pubic symphysis. Coronal and sagittal reformats were performed. For radiation dose reduction, the following was used: automated exposure control, adjustment of mA and/or kV according to patient size. COMPARISON: [facility], CT, CT ABDOMEN PELVIS W CON, 11/16/2024, 13:22. FINDINGS: Image quality: Diagnostic. Lower Chest: No significant findings. ABDOMEN: Liver: No solid mass. Steatosis. Gallbladder: No radiopaque gallstones or wall thickening. Biliary ducts: No biliary dilation. Pancreas: No ductal dilation. Spleen: Size is within normal limits. Adrenal Glands: No adrenal nodules. Kidneys and Ureters: No hydronephrosis. No solid mass. No complex renal cystic lesion which requires follow up. Stomach and Bowel: Normal colonic caliber, without significant wall thickening. Peritoneum: No abnormal intraperitoneal fluid. No free air. Ventral Wall: No significant ventral hernia. Abdominal Nodes: No retroperitoneal or mesenteric adenopathy by size criteria. Vessels: Aorta and inferior vena cava are normal in size. PELVIS: Pelvic Organs: 1.7 cm enhancing focus in the left adnexa. 6 sec focus measuring 3.3 cm in the right adnexa. The latter is unchanged. The former previously appeared is a nonenhancing low-attenuation focus. Wall Bladder: No bladder wall thickening, accounting for underdistention. Pelvic Nodes: No enlarged lymph nodes. Miscellaneous: No inguinal hernias are seen. Bones: No aggressive osseous abnormality. IMPRESSION: Persistent right ovarian cyst, unchanged. Likely evolving hemorrhagic cyst on the left. The above findings are concordant with preliminary report. Dictated by: Eda Olivier M.D. on 11/26/2024 at 8:18 Approved by: Eda Olivier M.D. on 11/26/2024 at 8:20
[2024-11-26 01:43] VITALS: BP 121/81; PULSE 82; O2SAT 99
--- NOTE | 2024-11-26 01:43 | ED_ITS ---
HPI - Abdominal Pain General Chief Complaint: Abdominal Pain Stated Complaint: LT side pain and LT arm aching Time Seen by Provider: 11/26/24 01:51 Source: patient Mode of arrival: Ambulatory History of Present Illness HPI narrative: 29-year-old female without any significant past medical history comes into the ED from home for evaluation of left upper quadrant left-sided chest pain, states started spontaneously at around 8:00 p.m. yesterday, states nothing is making it better nothing making it worse. States that she feels like it does kind transfer for/radiates to her left arm, she denies any trauma or falls, denies any shortness of breath fever chills nausea vomiting or any other GI/ symptoms time. Not on any blood thinners no recent sick contacts no recent travel. Related Data Home Medications Medication Instructions Recorded Confirmed pantoprazole 40 mg tablet,delayed 40 mg PO DAILY 05/31/21 01/19/24 release (Protonix) amitriptyline 25 mg tablet 25 mg PO BEDTIME 07/10/22 01/19/24 venlafaxine 50 mg tablet 50 mg PO DAILY 07/10/22 01/19/24 aripiprazole 5 mg tablet 5 mg PO DAILY 01/19/24 01/19/24 Allergies Allergy/AdvReac Type Severity Reaction Status Date / Time No Known Drug Allergies Allergy Verified 04/05/24 20:07 Review of Systems Review of Systems Narrative: General: Denies fever, chills, weight loss HEENT: Denies headache, eye drainage, eye irritation, head trauma, sore throat, voice change Cardiovascular: Denies any chest pain, palpitations, shortness of breath, tachycardia Respiratory: Denies any shortness of breath, cough, wheeze, stridor GI/: Positive left upper quadrant abdominal pain, denies nausea, vomiting, diarrhea, bright red blood per rectum, melanotic stools, urinary frequency, urinary retention, dysuria, hematuria MSK: Denies any joint pain, muscle pains, swelling Skin: Denies any rashes, lesions, discoloration Neuro: Denies any headache, lightheadedness, dizziness, fainting, weakness Psych: Denies SI/HI Patient History Medical History (Updated 11/26/24 @ 03:13 by Mendoza Mccarty DO) Migraine Anemia affecting GERD (gastroesophageal reflux disease) (~2015) No significant past medical history Surgical History [place] teeth extracted No pertinent past surgical history Family History Mother Chain smoker Father Family estrangement Grandmother Lung cancer Smoker Grandfather Smoker COPD (chronic obstructive pulmonary disease) Grandmother Diabetes mellitus Grandfather Diabetes mellitus Sister Asthma Social History marital status: unmarried,living together (Lives w/ FOB. ) number of children: 2 household members: significant other and children (Boyfriend's children, age 6 & 9. ) lives independently: Yes caregiver/support person: No housing: house pets and animals: Yes (1 Cat; aware. ) education level: college (Working on Bachelor's in [email or web address] occupational status: employed (Works on [employer], now has desk job r/t . ) current occupational exposures/hazards: No special lilly needs: No seatbelt use: always working smoke detector in home: Yes carbon monox detector in home: Yes firearms in home: Yes firearms unloaded and locked: Yes do you feel safe at home: Yes Smoking Status: Current every day smoker Tobacco: How many years used: 5 quit status: has quit before second hand exposure: No alcohol intake: former substance use type: does not use during the past year weight has: remained stable well-balanced diet: daily or most days daily servings fruits/ve-4 caffeine: No (Quit w . ) Type(s) of exercise: weight lifting (Pre-: weighted lifts / squats, gym daily. ) and normal ROM and activity frequency: daily Smoking Status: Current every day smoker tobacco type: vaping alcohol intake frequency: 0-2 drinks per day Alcohol type: beer, wine and hard liquor Exam Narrative Exam Narrative: General: Cooperative, comfortable, well-developed, not in acute distress HEENT: Normocephalic, atraumatic, PERRLA, normal sclera, eyelids normal, Neck: Active full range of motion, atraumatic Chest: Normal to inspection, negative crepitus, no overlying erythema ecchymosis Respiratory: Normal respiratory effort, not in acute respiratory distress, clear to auscultation bilaterally negative cough, wheeze, tachypnea, rhonchi, rales Cardiology: Regular rate rhythm negative gallop, murmur, rubs GI/: Normal to inspection, soft, nonrigid, no tenderness to palpation, exam deferred MSK: Full range of active range of motion of all 4 extremities, atraumatic Skin: No rashes lesions noted Neuro: Alert awake oriented x3, moves all 4 extremities spontaneously, cranial nerves intact, able to answer all questions appropriately follows commands appropriately Psych: Cooperative, negative suicidal or homicidal ideations Initial Vital Signs Initial Vital Signs: Vital Signs Temperature 97.9 F 11/25/24 21:11 Pulse Rate 80 11/25/24 21:11 Respiratory Rate 18 11/25/24 21:11 Blood Pressure 110/69 11/25/24 21:11 Pulse Oximetry 99 11/25/24 21:11 Oxygen Delivery Method Room Air 11/25/24 21:11 Course Orders Ordered: ED Orders 11/25/24 21:16 EKG-12 Lead Stat 11/25/24 21:17 XR chest 1V Stat 11/25/24 21:34 Complete Blood Count AUTO DIFF Stat Comprehensive Metabolic Panel Stat Lipase Stat Trop I [Troponin I] Stat 11/26/24 01:40 CT abdomen pelvis w con Stat Ketorolac Tromethamine (Ketorolac 30 Mg/Ml Vial) 15 mg IV NOW ONE Stop: 11/26/24 03:13 Ondansetron HCl (Ondansetron 4 Mg/2 Ml Inj) 4 mg IV NOW PRN PRN Reason: Nausea And Vomiting Ondansetron HCl (Ondansetron 4 Mg Odt) 4 mg PO NOW PRN PRN Reason: Nausea And Vomiting Vital Signs Vital signs: Vital Signs - 8 hr 11/25/24 21:11 11/26/24 01:43 11/26/24 01:43 Temperature 97.9 F Pulse Rate 80 82 Respiratory Rate 18 Blood Pressure 110/69 121/81 Pulse Oximetry 99 99 Oxygen Delivery Method Room Air Room Air MDM - Abdominal Pain Differential Diagnosis Differential diagnosis: Likely abdominal pain, gastroenteritis, pancreatitis and other (Electrolyte abnormality, ACS, pneumonia) Lab Data 11/25/24 21:34 11/25/24 21:34 Labs: Lab Results 11/25/24 Range/Units 21:34 WBC 9.1 (4.5-11.0) X10^3/uL RBC 4.34 (4.0-5.2) X10^6/uL Hgb 12.1 (12.0-16.0) g/dL Hct 36.3 (36-46) % MCV 83.5 (80-100) fL MCH 27.9 (26-34) PG MCHC 33.4 (30-36) % RDW 15.5 H (11.6-14.8) % Plt Count 363 (150-400) X10^3/uL Neut % (Auto) 58.2 (50-75) % Lymph % (Auto) 32.2 (25-40) % [place] % (Auto) 8.2 (3-14) % Eos % (Auto) 0.7 L (2-4) % Baso % (Auto) 0.7 (0-2) % Neut # (Auto) 5300 (6073-4800) /uL Lymph # (Auto) 2900 (4327-1930) /uL [place] # (Auto) 700 (0-900) /uL Eos # (Auto) 100 (0-450) /uL Baso # (Auto) 100 (0-100) /uL Sodium 137 (137-145) mmol/L Potassium 3.9 (3.4-5.1) mmol/L Chloride 107 (98-107) mmol/L Carbon Dioxide 21 L (22-32) mmol/L BUN 11 (7-17) mg/dL Creatinine 0.76 (0.52-1.04) mg/dL Estimated GFR > 60 (>60) mL/min BUN/Creatinine Ratio 14.5 (6-22) Glucose 112 H (70-100) mg/dL Calcium 8.9 (8.4-10.2) mg/dL Total Bilirubin 0.3 (0.2-1.3) mg/dL AST 27 (14-36) IU/L ALT 28 (<35) IU/L Alkaline Phosphatase 101 (38-126) U/L Troponin I < 0.012 (0.01-0.034) ng/mL Total Protein 7.5 (6.3-8.2) g/dL Albumin 4.5 (3.5-5.0) g/dL Globulin 3.0 (1.7-4.1) g/dL Albumin/Globulin Ratio 1.5 (1.0-2.8) Lipase 60 (23-300) U/L Point of care testing: Point of Care Testing Test Results Negative Urine Dip Bedside Urine Glucose Negative Bedside Urine Bilirubin - Negative Bedside Urine Ketone - Negative Urine Specific [place] 1.03 Bedside Urine Occult Blood - Negative Bedside Urine pH 6 Bedside Urine Protein - Negative Bedside Urine Urobilinogen - Negative Bedside Urine Nitrite - Negative Bedside Urine Leukocytes - Negative Esterase Imaging Data Chest x-ray: Radiologist's Impression: [address] [address] XRay Report Signed Patient: Jacinta Canales MR#: [id number] : 1995 Acct:[id number] Age/Sex: 29 / F Date of Service: 11/25/24 Loc: ED Accession Number: [id number] Procedure: XR chest 1V Ordering Provider: Mendoza Mccarty D.O. PROCEDURE: XR CHEST 1V INDICATIONS: L Rib/shoulder pain, worse with inspiration TECHNIQUE: One view of the chest was acquired. COMPARISON: [facility], , XR CHEST 1V, 08/29/2019, 4:58. FINDINGS: Surgical changes and devices: None. Lungs and pleura: Lungs are clear. No pleural effusions or pneumothorax. Mediastinum: Mediastinal contours appear normal. Heart size is normal. Bones and chest wall: No grossly displaced rib fracture. No suspicious bony lesions. Overlying soft tissues appear unremarkable. IMPRESSION: No acute cardiopulmonary abnormality is seen. CT scan - abdomen/pelvis: Radiologist's Impression: Preliminary read showing gallbladder spleen unremarkable. Noted 3.2 cm right ovarian cyst with neighboring pelvic fluid most consistent with hemorrhagic cyst. Otherwise no other acute findings ECG Data Interpretation: EKG interpreted by ED physician sinus 77 beats per minute QTC 402, normal axis nonspecific ST changes, no STEMI MDM Narrative Medical decision making narrative: There whenever feel without any significant past medical history comes into the ED for evaluation of left-sided chest pain/left upper quadrant abdominal pain started yesterday at approximately 8:00 p.m. started spontaneously nothing making it better or worse. Patient had EKG performed here nonischemic in nature, lab work without any leukocytosis, troponin negative, urinalysis not consistent with acute urinary tract infection. Patient also had CT scan of her abdomen did show 3.2 right ovarian cyst with free fluid consistent with a hemorrhagic cyst, however patient not complaining of any right lower quadrant/pelvic pain. Patient states that she has had a history of ovarian cysts in the past. Patient without any tenderness to palpation of that region. Instructed to follow up with OBGYN given ovarian cyst rupture on CT scan, as well as GI for continued evaluation treatment of her symptoms. Patient was given strict return precautions and verbalized understanding of this and agrees to being discharged home with outpatient follow up Discharge Plan Departure Patient Disposition: Home Clinical Impression: Abdominal pain Instructions: DI for Abdominal Pain-Adult Activity Restrictions/Additional Instructions: Please follow up with primary care and GI in outpatient setting Please read the discharge instructions sheet carefully and bring all papers to all doctor follow-up visits, as it may contain information that your doctor may want to see. Disease processes change and evolve, if your symptoms worsen or if you develop any new symptoms that are concerning to you please return for evaluation. Your evaluation today does not show any evidence of any life- threatening/serious illnesses requiring admission to the hospital or surgery. Please follow-up with your doctor for re-evaluation in approximately 1 day. Seek immediate medical attention for any worrisome symptoms. *If you do not have a primary care provider please contact the [facility] Resource line at [phone]. They will ask some questions about your medical history and help get you set up with a doctor in the community. Prescriptions: No Action pantoprazole [Protonix] 40 mg tablet,delayed release (DR/EC) 40 mg PO DAILY venlafaxine 50 mg tablet 50 mg PO DAILY amitriptyline 25 mg tablet 25 mg PO BEDTIME aripiprazole 5 mg tablet 5 mg PO DAILY Referrals: Mike Shepherd MD [Non-Staff] - Jacques Tamayo [Primary Care Provider] - Stand Alone Forms: Patient Portal/API/Survey
[2024-11-26 02:01] VITALS: PULSE 87; O2SAT 99
[2024-11-26 02:30] VITALS: PULSE 76; O2SAT 99
[2024-11-26 03:00] VITALS: PULSE 80; RESP 18; O2SAT 97
[2024-11-26 03:19] VITALS: PULSE 77; O2SAT 98
[2024-11-26 03:20] VITALS: BP 114/68; RESP 18
[2024-11-26] MEDS: KETOROLAC 30 MG/ML VIAL 15 MG IV (03:20)
== END 2024-11-26 03:26 | disposition home or self-care (01) ==
PROVIDERS: Emergency Provider Student in an Organized Health Care Education/Training Program; PCP Student in an Organized Health Care Education/Training Program
DX: R10.12 Left upper quadrant pain (principal); R07.9 Chest pain, unspecified; N83.201 Unspecified ovarian cyst, right side
CPT/HCPCS: 36415; 71045; 74177; 80053; 81003; 81025; 83690; 84484; 85025; 93005; 96374; 99284; 99285; J1885; Q9967